=== PATIENT | male | born 1950 | race Caucasian/White ===

== ENCOUNTER 2020-12-18 16:29 | Emergency (ER) | payer MEDICARE, OTHER, SELFPAY ==
[2020-12-18] VITALS (52 sets, daily range): BP systolic 36–218; BP diastolic 18–120; PULSE 67–144; RESP 5–23; O2SAT 88–100
--- NOTE | 2020-12-18 16:30 | DI.RAD_ITS ---
Exam(s) XR PORTABLE CHEST AP EXAM: XR PORTABLE CHEST AP CLINICAL HISTORY: post intubation TECHNIQUE: 2D digital imaging was performed. COMPARISON: No exams were available for comparison FINDINGS: LUNGS: Expiratory but clear. No pleural abnormality seen. Leads overlie the chest. HEART: Normal. MEDIASTINUM: No mediastinal widening. Endotracheal tube positioned at the level of the aortic arch, above the ronda. BONES: Unremarkable. IMPRESSION: Satisfactory placement of endotracheal tube. DATA REPOSITORY: RADIATION DOSE DELIVERED:
[2020-12-18] MEDS: EPINEPHrine 1 MG/10 ML SYR IVP ×2 (16:35→17:21)
[2020-12-18] MEDS: Sodium Bicarbonate 50 MEQ/50 ML SYR IVP (16:36)
[2020-12-18] MEDS: Etomidate 20 MG/10 ML VIAL IVP (16:37)
[2020-12-18] MEDS: Succinylcholine 100 MG/5 ML SYR IVP (16:37)
[2020-12-18] MEDS: PROPOFOL 500 MG/50 ML BTL IVPB (16:45)
--- NOTE | 2020-12-18 16:45 | RT.EKG_ITS ---
APPROVED REPORT Exam: Resting ECG Reason for Exam: cardiac arrest Patient Location: E HR:124 bpm ECG Measurements Heart Rate 124 AXIS HI 155 P 89 QRSd 130 QRS -103 QT 328 T 12 QTc 471 Conclusion Sinus tachycardia...rate> 99 Right bundle branch block...QRSd>120, terminal axis(90,270) Inferior infarct, old...Q >35mS, II III aVF. Sinus tach. RBBB. I have reviewed and interpreted ECG and agree with software generated interpretation. No STEMI.
[2020-12-18] MEDS: Normal Saline 1,000 ML 1000 ML IV ×2 (17:00→19:07)
--- NOTE | 2020-12-18 17:00 | DI.RAD_ITS ---
Exam(s) XR PORTABLE CHEST AP POST LINE EXAM: XR PORTABLE CHEST AP POST LINE CLINICAL HISTORY: s/p OG placement TECHNIQUE: 2D digital imaging was performed. COMPARISON: CR,XR XR PORTABLE CHEST AP from 12/18/2020 FINDINGS: Endotracheal tube in good position above the level of the ronda. nasogastric tube in position, proj ecting in the stomach. Lungs suboptimally inflated. Question chronic fibrotic changes. No focal c onsolidation, effusion or pneumothorax. IMPRESSION: Satisfactory placement of nasogastric tube. DATA REPOSITORY: RADIATION DOSE DELIVERED:
--- NOTE | 2020-12-18 17:04 | ED.GENADUL_ITS ---
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 Given 1 IM dose of epi at front door by ED staff. Pt pale and unresponsive. Pt placed on monitor and noted to be tachycardic and sinus. Shortly after arrival, pt became pulseless and CPR initiated. Pt given another dose of IM epi and then a dose of IV epi. ROSC obtained and pt intubated. Propofol gtt started. Staff noted pt to be grimacing and a dose of fentanyl IV push ordered by JUANY. 1720 -- pt became hypotensive and pulseless a few minutes after fentanyl bolus. CPR initiated and continued for 2 minutes. Given 1 dose of epi IV and epi gtt started. ROSC obtained. HR 120s and appears sinus on monitor. D/w hospitalist who declines admission here. Will call [facility] for transfer. Pt remained hypotensive w/ SBP in the ~ 30s with weak pulse and given 1 dose of IV epi and epi gtt increased incrementally. Bounding pulse noted but no improvement in BP and propofol decreased and versed gtt added. No beds available at [facility]. JUANY Nettles d/w [facility] critical care - recommended levophed gtt and continual fluid boluses. Agrees with plan for continuing epi gtt. BP improved after decreasing propofol gtt before versed gtt started , now 126/42. 1810 -- pt accepted for transfer to [facility] once stable. BP hypotensive, 42/30. 1830 -- BP improved and stabilized, now 126/59. Pt is on propofol, versed, epi and norepi gtts. D/w [facility] who accepts pt for transfer - accepting physician Dr. Aldrich. Will contact [facility]. 190 -- Pt remains hemodynamically stable. Nursing continuing to manage gtts at bedside. Concurrently managing another critical pt in the ED at this time. 1950 -- Flight crew here to transport pt - BP 98/61. Medical Records Medical records reviewed: Yes I reviewed the patient's medical records. Imaging Data Radiologic Study: Radiologist's impression: XR Chest Exam date and time: 12/18/2020 5:14 PM Age: 70 years old Clinical indication: Device placement; Other: Og placement TECHNIQUE: Imaging protocol: XR of the chest. Views: 1 view. COMPARISON: CR XR PORTABLE CHEST AP 12/18/2020 4:54 PM FINDINGS: Tubes, catheters and devices: ET tube tip 3.4 cm above the ronda. NG tube tip at the proximal body of the stomach. Lungs: Unremarkable. No consolidation. Pleural spaces: Unremarkable. No pleural effusion. No pneumothorax. Heart/Mediastinum: Unremarkable. No cardiomegaly. Bones/joints: Unremarkable. IMPRESSION: 1. ET tube tip 3.4 cm above the ronda. 2. NG tube tip at the proximal body of the stomach. Lab Data Lab results reviewed: Yes I reviewed the patient's lab results. Labs: Laboratory Tests Range/Units 12/18/20 12/18/20 12/18/20 16:48 17:25 17:25 WBC (4.4-10.8) 10^3/uL 12.10 H RBC (4.36-5.78) 10^6/uL 5.18 Hgb (13.5-17.5) g/dL 15.7 Hct (40.0-50.0) % 48.5 MCV (80-95) fL 93.6 MCH (27.0-33.0) pg 30.3 MCHC (32.0-36.0) % 32.4 RDW (11.8-14.1) % 13.0 Plt Count (130-400) 10^3/uL 372 MPV (8.0-11.0) fL 9.7 Immature Gran % 3.8 Neutrophils % 44.1 Lymphocytes % 47.7 Monocytes % 3.9 Eosinophils % 0.3 Basophils % 0.2 Nucleated RBC % % 0 Absolute Neutrophils (1.2-6.7) 10^3/uL 5.34 Absolute Lymphocytes (1.2-3.4) 10^3/uL 5.77 H Absolute Monocytes (0.1-0.8) 10^3/uL 0.47 Absolute Eosinophils (0.0-0.7) 10^3/uL 0.04 Absolute Basophils (0.0-0.2) 10^3/uL 0.02 RBC Morphology Normal ABG Sample Site ABG pH (7.35-7.45) ABG pCO2 (35-45) mmHg ABG pO2 (80-105) mmHg ABG HCO3 (22-26) mmol/L ABG Total CO2 ABG O2 Saturation (95-98) % ABG Base Excess (-2-3) mmol/L Oxygen Liter Flow FiO2 Sodium Cancelled 141 Potassium Cancelled 3.1 L Chloride Cancelled 107 Carbon Dioxide Cancelled 18.3 L Anion Gap Cancelled 15.7 H BUN Cancelled 11 Creatinine Cancelled 1.7 H Estimated GFR/1.73 m2 Cancelled 40.04 Glucose Cancelled 140 H Calcium Cancelled 7.9 L Magnesium (1.8-2.4) mg/dL 2.1 Total Bilirubin Cancelled 0.3 AST Cancelled 73 H ALT Cancelled 71 H Alkaline Phosphatase Cancelled 49 Troponin I Cancelled 0.05 Total Protein Cancelled 5.6 L Albumin Cancelled 2.9 L TSH (0.36-3.74) uIU/mL 4.13 H Free T4 (0.76-1.46) ng/dL 0.87 Range/Units 12/18/20 12/18/20 12/18/20 17:28 19:57 21:17 WBC (4.4-10.8) 10^3/uL RBC (4.36-5.78) 10^6/uL Hgb (13.5-17.5) g/dL Hct (40.0-50.0) % MCV (80-95) fL MCH (27.0-33.0) pg MCHC (32.0-36.0) % RDW (11.8-14.1) % Plt Count (130-400) 10^3/uL MPV (8.0-11.0) fL Immature Gran % Neutrophils % Lymphocytes % Monocytes % Eosinophils % Basophils % Nucleated RBC % % Absolute Neutrophils (1.2-6.7) 10^3/uL Absolute Lymphocytes (1.2-3.4) 10^3/uL Absolute Monocytes (0.1-0.8) 10^3/uL Absolute Eosinophils (0.0-0.7) 10^3/uL Absolute Basophils (0.0-0.2) 10^3/uL RBC Morphology ABG Sample Site Cancelled ABG pH (7.35-7.45) 7.18 L* Cancelled ABG pCO2 (35-45) mmHg 46 H Cancelled ABG pO2 (80-105) mmHg 458 H Cancelled ABG HCO3 (22-26) mmol/L 17 L Cancelled ABG Total CO2 Cancelled ABG O2 Saturation (95-98) % > 99 H Cancelled ABG Base Excess (-2-3) mmol/L -11 L Cancelled Oxygen Liter Flow Cancelled FiO2 Cancelled Sodium Potassium Chloride Carbon Dioxide Anion Gap BUN Creatinine Estimated GFR/1.73 m2 Glucose Calcium Magnesium (1.8-2.4) mg/dL Total Bilirubin AST ALT Alkaline Phosphatase Troponin I 0.84 H* Total Protein Albumin TSH (0.36-3.74) uIU/mL Free T4 (0.76-1.46) ng/dL ECG Data Attestation: I personally reviewed and interpreted this ECG (s) as follows: Interpretation: Rate of 124, sinus, right bundle branch block. No STEMI. HPI General Mode of arrival: ambulatory . Date/Time Provider Initiated Documentation: 12/18/20 16:41 . Limitations to Documentation: altered mental status . Information obtained by: family . 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 She states that once they pulled right up to the ED front door, he started foaming at the mouth and slumped over in the seat. ED staff immediately ran out to the ED front doors where he was given Related Data Home Medications Medication Instructions Recorded Confirmed lisinopril 12/18/20 Allergies Allergy/AdvReac Type Severity Reaction Status Date / Time bee venom protein (honey bee) Allergy Anaphylaxis Unverified 12/18/20 17:41 Review of Systems Unobtainable due to mental status [facility] Medical History (Updated 12/18/20 @ 18:03 by Adamaris Ramsay DO) Anaphylaxis Bees HTN (hypertension) Surgical History (Updated 12/18/20 @ 17:13 by YOKO Gibson History of knee surgery Social History Smoking/Tobacco Use Status: Former Tobacco Use Smoking risk assessment performed?: Yes Alcohol Intake: current Alcohol Intake frequency: 0-2 drinks per day Substance use type: does not use Additional Social history: unable to assess pt is unconcious Exam Const Nutritional Appearance: average body habitus Orientation: obtunded HENMT Head: normal to inspection Face and sinus: normal facial exam Eyes General: appearance normal, both eyes and all related structures Pupils: PERRL Neck Neck: normal visual inspection and No submandibular swelling Lymphatic: no lymphadenopathy noted Chest Chest: normal inspection of the chest Resp Auscultation: rhonchi upper bilaterally and lower bilaterally Cardio Rate: tachycardic Rhythm: regular rhythm GI Inspection: normal to inspection Palpation: soft, not firm, not rigid and nontender Male General Exam: Yes normal external exam Skin General skin exam: mottling and pallor Neuro General: patient obtunded Extrem General: normal to inspection and no edema Psych Appearance: grossly normal Course Lab/Test Results Lab/Test Results: Laboratory Tests Range/Units 12/18/20 16:48 Sodium Cancelled Potassium Cancelled Chloride Cancelled Carbon Dioxide Cancelled Anion Gap Cancelled BUN Cancelled Creatinine Cancelled Estimated GFR/1.73 m2 Cancelled Glucose Cancelled Calcium Cancelled Total Bilirubin Cancelled AST Cancelled ALT Cancelled Alkaline Phosphatase Cancelled Troponin I Cancelled Total Protein Cancelled Albumin Cancelled Procedures Intubation Time out performed: Yes sedative: Etomidate Mg Given: 20 paralytic: Succinylcholine Mg Given: 100 Laryngoscope: fiberoptic video scope ET Tube Size: 7.5 ET Tube Uncuffed: No Tube Secured Depth (cm): 25 Tube Placement Confirmation: visualized tube passing through cords and equal breath sounds bilaterally Patient Tolerated Procedure: well Intubation Complications: none
[2020-12-18] MEDS: fentaNYL 100 MCG/2 ML VIAL (17:17)
--- NOTE | 2020-12-18 17:30 | DI.VRAD_ITS ---
PROCEDURE INFORMATION: Exam: XR Chest Exam date and time: 12/18/2020 5:00 PM Age: 70 years old Clinical indication: Device placement; Ett placement (vent status) TECHNIQUE: Imaging protocol: XR of the chest. Views: 1 view. COMPARISON: No relevant prior studies available. FINDINGS: Tubes, catheters and devices: Single-view demonstrates endotracheal tube in good position approximately 3 cm above the ronda. Lungs: Unremarkable. No consolidation. Pleural spaces: No pneumothorax or significant effusion. Heart/Mediastinum: Unremarkable. No cardiomegaly. Bones/joints: Unremarkable. Other findings: Probable calcified nodule projecting over the left mid lung zone laterally appears benign. IMPRESSION: Dictated and Authenticated by: Antonio Cedillo MD. Ordering:TRI Ruvalcaba MD
[2020-12-18 17:31] LABS: BE -11 mmol/L (-2-3); HCO3 17 mmol/L (22-26); pCO2 46 mmHg (35-45); pO2 458 mmHg (80-105)
[2020-12-18 17:33] LABS: pH 7.18 (7.35-7.45); sO2 > 99 % (95-98)
[2020-12-18 17:35] LABS: Abs Immature Grans 0.46 10^3/uL (0.0-0.06); Absolute Eosinophil Count 0.04 10^3/uL (0.0-0.7); Absolute Lymphocyte Count 5.77 10^3/uL (1.2-3.4); Absolute Monocyte Count 0.47 10^3/uL (0.1-0.8); Basophils % 0.2; Eosinophils % 0.3; HCT 48.5 % (40.0-50.0); HGB 15.7 g/dL (13.5-17.5); Immature Grans % 3.8; Lymphocytes % 47.7; MCH 30.3 pg (27.0-33.0); MCHC 32.4 % (32.0-36.0); MCV 93.6 fL (80-95); MPV 9.7 fL (8.0-11.0); Monocytes % 3.9; Neutrophils % 44.1; Nucleated RBC 0 %; Platelet Count 372 10^3/uL (130-400); RBC 5.18 10^6/uL (4.36-5.78)
[2020-12-18 17:36] LABS: Absolute Basophil Count 0.02 10^3/uL (0.0-0.2); Absolute Neutrophil Count 5.34 10^3/uL (1.2-6.7)
[2020-12-18 17:55] LABS: ALT 71 U/L (16-63); AST 73 U/L (15-37); Albumin 2.9 g/dL (3.4-5.0); Alkaline Phosphatase 49 U/L (46-116); Anion Gap 15.7 mmol/L (3-11); BUN 11 mg/dL (7-18); Bilirubin, Total 0.3 mg/dL (0.2-1.0); CO2 18.3 mmol/L (21.0-32.0); CREATININE 1.7 mg/dL (0.70-1.30); Calcium 7.9 mg/dL (8.5-10.1); Chloride 107 mmol/L (98-107); Estimated GFR 40.04 (mL/min/1.73m2); Glucose 140 mg/dL (74-106); Magnesium 2.1 mg/dL (1.8-2.4); Potassium 3.1 mmol/L (3.5-5.1); Sodium 141 mmol/L (136-145); Total Protein 5.6 g/dL (6.4-8.2); Troponin I 0.05 ng/mL (<0.06)
[2020-12-18 17:56] LABS: Diff Comment Agrees w/ Instrument; RBC Morphology Normal
[2020-12-18] MEDS: MIDAZOLAM 50 MG in Normal Saline 90 ML 18 MG IV (18:10)
[2020-12-18 18:17] LABS: TSH (W/Ref FT4) 4.13 uIU/mL (0.36-3.74)
[2020-12-18 18:34] LABS: FREE T4 0.87 ng/dL (0.76-1.46)
--- NOTE | 2020-12-18 19:44 | NUR.NOTE ---
Nursing Note: MD at bedside, all drips titrated and reflected on MAR were per verbal order Dr. Ramsay.
--- NOTE | 2020-12-18 19:53 | DI.VRAD_ITS ---
PROCEDURE INFORMATION: Exam: XR Chest Exam date and time: 12/18/2020 5:14 PM Age: 70 years old Clinical indication: Device placement; Other: Og placement TECHNIQUE: Imaging protocol: XR of the chest. Views: 1 view. COMPARISON: CR XR PORTABLE CHEST AP 12/18/2020 4:54 PM FINDINGS: Tubes, catheters and devices: ET tube tip 3.4 cm above the ronda. NG tube tip at the proximal body of the stomach. Lungs: Unremarkable. No consolidation. Pleural spaces: Unremarkable. No pleural effusion. No pneumothorax. Heart/Mediastinum: Unremarkable. No cardiomegaly. Bones/joints: Unremarkable. IMPRESSION: 1. ET tube tip 3.4 cm above the ronda. 2. NG tube tip at the proximal body of the stomach. Dictated and Authenticated by: Kj Rodarte MD. Ordering:BIJU Chavarria MD
[2020-12-18 20:38] LABS: Troponin I 0.84 ng/mL (<0.06)
[2020-12-19 11:09] LABS: FIO2 100 %; Site Right Radial
== END 2020-12-18 20:43 | disposition short-term general hospital (02) ==
PROVIDERS: Student in an Organized Health Care Education/Training Program; Emergency Provider Physician Assistant; PCP Family Medicine Adult Medicine
DX: T78.2XXA Anaphylactic shock, unspecified, initial encounter (principal); T63.441A Toxic effect of venom of bees, accidental (unintentional), initial encounter; I46.8 Cardiac arrest due to other underlying condition; Z91.030 Bee allergy status
CPT/HCPCS: 31500; 51702; 71045; 80053; 82805; 92950; 93005; 96361; 96365; 96366; 96368; 96372; 96375; 96376; 99291; 99292; 36600; 83735; 84439; 84443; 84484; 85025; 93010; J0171; J3010; J3490

== ENCOUNTER 2021-07-11 03:12 | Outpatient (CLI) | payer MEDICARE, OTHER, SELFPAY ==
[2021-07-11 11:54] LABS: Source Nasal/Nares
[2021-07-11 16:13] LABS: COVID-19 PCR Negative (Negative)
== END 2021-07-11 03:13 | disposition home or self-care (01) ==
LOC: LBO 03:13
PROVIDERS: Visit Provider Podiatrist
DX: Z20.822 Contact with and (suspected) exposure to COVID-19 (principal)
CPT/HCPCS: 87635

== ENCOUNTER 2021-07-13 06:11 | Day surgery (SDC) | payer MEDICARE, OTHER, SELFPAY ==
--- NOTE | 2021-07-12 20:35 | HPE_ITS ---
Date of service: 07/13/21 Time of Service: 06:35 History of Present Illness History of Present Illness Chief Complaint: painful right 2nd hammertoe Narrative: 71 YO male with a painful right 2nd hammertoe deformity that is intering with shoe gear and, ambulation and daily activity. PFSH All Active Problems Bee sting-induced anaphylaxis (Acute) Cardiopulmonary arrest (Acute) Medical History Anaphylaxis Bees HTN (hypertension) Surgical History History of knee surgery Social History Smoking/Tobacco Use Status: Former Tobacco Use Smoking risk assessment performed?: Yes Alcohol Intake: current Alcohol Intake frequency: 0-2 drinks per day Substance use type: does not use Additional Social history: unable to assess pt is unconcious Meds Allergies and Home Medications Allergies Allergy/AdvReac Type Severity Reaction Status Date / Time bee venom protein (honey bee) Allergy Anaphylaxis Unverified 12/18/20 17:41 Home Medications Medication Instructions Recorded Confirmed Type lisinopril 12/18/20 History Exam Narrative Exam Narrative: 71 YO male in NAD Heads normo-cephalic Eyes PERRLA Hearing is adequate Uvula is midline Heart had RRR, no murmur noted Lung hall were clear Stomach was soft, BS x 4 Peripheral pulses are palpable at the ankle, no edema. Feet are warm to the touch. Muscle groups are 5/5 bilaterally Right foot has a semi rigid 2nd hammertoe deformity with irritation over the P IPJ. Digiti quinti varus deformity is also noted. Neurologically: grossly in tact Impressions: Hammertoe deformities, 2 & 5 right foot Plan: Zachariah is being brought to the OR for surgical repair of symptomatic hammeertoe deformities. He understands risks and complications related to pain, scarring, edema, infection, over or under correction, recurrence of deformity. All questions have been answered in detail. Informed consent obtained.
[2021-07-13 06:15] VITALS: BP 140/84; PULSE 89; RESP 18; TEMP 35.8; O2SAT 98
[2021-07-13] MEDS: Lactated Ringers 1,000 ML 80 ML IV (06:57)
[2021-07-13] MEDS: ceFAZolin 2 GM/50 ML BAG IVPB (07:33)
[2021-07-13] MEDS: Bupivacaine 0.5% Pres-Free 30 ML VIAL (07:51)
[2021-07-13] MEDS: Povidone-Iodine Soln. 118 ML BTL TP (08:00)
[2021-07-13] MEDS: Dexamethasone 4 MG/ML VIAL (08:01)
--- NOTE | 2021-07-13 08:14 | W.PM.DSUDISC ---
Discharge Plan Disposition Patient Disposition: HOME Condition: Good Discharge Details Reason For Visit: Correction symptomatic right second hammertoe Attending Provider: Michael Hyman Primary Care Provider: [facility] Home Meds and New Rx's Prescriptions: New hydrocodone-acetaminophen 5-325 mg tablet 1 tab PO Q4H PRN (Reason: pain) Qty: 9 RF: 0 ibuprofen 600 mg tablet 600 mg PO Q6H PRN (Reason: pain and inflammation) Qty: 40 RF: 1 Continued hydrochlorothiazide 12.5 mg tablet 12.5 mg PO DAILY RF: 0 lisinopril 5 mg Tablet RF: 0 Discharge Instructions Activity:: Elevate Remove Dressings/Wound Care:: Do Not Remove Shower/Bathe:: Cover Diet:: Normal Diet Discharge Orders Discharge Orders: Discharge Order (Routine); Ordered 07/13/21 Ordered By: Michael Hyman DS: Diagnosis Discharge Diagnosis (1) Hammertoe of second toe of right foot: Status: Acute
--- NOTE | 2021-07-13 08:20 | W.PM.OP ---
Date of service: 07/13/21 Time of Service: 08:20 Operative Note Operative Note DATE OF PROCEDURE: 07/13/21 PRE-OP DIAGNOSIS: Right second hammertoe deformity POST-OP DIAGNOSIS: same PROCEDURE: Arthroplasty right second toe with 0.062 K wire fixation SURGEON: Michael Hyman ANESTHESIA TYPE: Local By Surgeon Refer to Anesthesia Record ESTIMATED BLOOD LOSS: 1 PATHOLOGY: none sent TOURNIQUET TIME: 0 COMPLICATIONS: None Patient was transported to: same day Patient's condition: stable Indications: 71-year-old white male with increasing pain associated with the right second hammertoe deformity. Pain is experienced in shoe gear and ambulatory activities now interfering with daily activities. He understands risk and complications of surgery to obtain the potential for pain, scarring, infection, recurrence of deformity with the potential need for revisional procedures. All questions have been answered in detail. Informed consents been obtained. No promises made to final outcome of surgery. Procedure Description: Zacharaih was brought to the operative suite placed in the supine position with the right foot prepped and draped in the usual sterile podiatric fashion. Timeout was performed for safe surgery in the standard fashion. Local anesthetic was utilized for anesthesia consisting of 5 cc of a 50: 50 mixture 1% lidocaine with epinephrine 0.5% Marcaine plain at the base of the right second toe. Foot was then prepped and draped in the usual sterile fashion. Attention was directed to the second toe where a midline longitudinal incision was placed starting at the mid shaft region of the proximal phalanx and extending to the head of the middle phalanx. The incision was deepened in controlled depth fashion. The extensor tendon was noted and a transverse tenotomy performed at the PIPJ level. The medial lateral collaterals were released and the head of the proximal phalanx delivered into the wound. Degenerative changes of the articular surface noted. With double-action bone cutting forceps the head of the proximal phalanx was removed. Relaxation of the toe occurred. There was still a little contracture at the MPJ level so a stab incision was placed just behind the metatarsal phalangeal joint and the extensor tendon release with a #15 scalpel. At this time the second toe was in a relaxed position. The digit was then stabilized in retrograde fashion with a 0.062 K wire. The wound was copiously irrigated with normal saline. A tendinopathy was performed and the tendon repaired end-to-end at the PIPJ level with simple interrupted suture 3-0 Vicryl. The skin was then coapted with a combination of simple interrupted and horizontal mattress suture of 4-0 nylon. Stab incision was closed with a simple stitch of 4-0 nylon. 4 mg of dexamethasone phosphate was infused deeply into the wound. Xeroform Betadine ointment applied gauze fluff compression dressing was applied Zachariah left the OR vital signs stable vascular status intact will be followed by myself next week in the office. Sharp and sponge counts were correct. 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
== END 2021-07-13 08:45 | disposition home or self-care (01) ==
PROVIDERS: Visit Provider Podiatrist
PROC: (CPT 28285; principal; 2021-07-13 07:30)
DX: M20.41 Other hammer toe(s) (acquired), right foot (principal); I10 Essential (primary) hypertension
CPT/HCPCS: 28285; J0690; J1100

== ENCOUNTER → 2021-08-27 08:26 | Outpatient (BNVA) | payer MEDICARE, OTHER, SELFPAY | PROVIDERS: Visit Provider Student in an Organized Health Care Education/Training Program | DX: M17.11 Unilateral primary osteoarthritis, right knee (principal) | CPT/HCPCS: 99214 ==

== ENCOUNTER 2021-11-20 08:17 | Outpatient (CLI) | payer MEDICARE, OTHER, SELFPAY ==
--- NOTE | 2021-11-20 08:00 | DI.RAD_ITS ---
Exam(s) XR KNEE LT 3V AP,LAT,KIERRA EXAM: XR KNEE LT 3V AP,LAT,KIERRA CLINICAL HISTORY: left knee pain. TECHNIQUE: 2D digital imaging was performed. COMPARISON: CR KNEE 2 VIEWS (ROUTINE) from 08/02/2020 FINDINGS: Four views No evidence of fracture. There appears to be a small joint effusion. Some calcification is noted in the distal anterior aspect of the quadriceps tendon just above the patella. There is narrowing of t he medial compartment of the knee-moderate. No large osteophytes. Lateral compartment unremarkable. Patellofemoral compartment exhibits mild degenerative change. Some vascular calcification is noted in the popliteal artery and runoff vessels of the calf. IMPRESSION: Degenerative changes as described above. Small joint effusion. No osseous lesions. No osteochondra l defects evident. DATA REPOSITORY: RADIATION DOSE DELIVERED:
== END 2021-11-20 08:18 | disposition home or self-care (01) ==
LOC: DIORS 08:17
PROVIDERS: Visit Provider Physician Assistant Surgical
DX: M17.12 Unilateral primary osteoarthritis, left knee
CPT/HCPCS: 20610; 73562; J1040

== ENCOUNTER 2022-02-01 08:17 | Outpatient (CLI) | payer MEDICARE, OTHER, SELFPAY ==
--- NOTE | 2022-02-01 08:00 | DI.RAD_ITS ---
Exam(s) XR KNEE RT 1V EXAM: XR KNEE RT 1V CLINICAL HISTORY: right knee DJD. TECHNIQUE: 2D digital imaging was performed. COMPARISON: CR XR KNEE LT 3V AP,LAT,KIERRA from 11/20/2021 CR XR STANDING ALIGNMENT from 02/01/2022 FINDINGS: Single lateral view No fracture evident. Small joint effusion. Also prominent calcification at the quadriceps insertion on the anterosuperior aspect of the patella. Moderate degenerative changes in patellofemoral compar tment. No obvious osteochondral defects in the femoral condyles. Vascular calcification noted in th e popliteal artery. IMPRESSION: DATA REPOSITORY: RADIATION DOSE DELIVERED:
--- NOTE | 2022-02-01 08:00 | DI.RAD_ITS ---
Exam(s) XR STANDING ALIGNMENT EXAM: XR STANDING ALIGNMENT CLINICAL HISTORY: right knee DJD. TECHNIQUE: 2D digital imaging was performed. COMPARISON: CR XR KNEE LT 3V AP,LAT,KIERRA from 11/20/2021 FINDINGS: Standing leg length study images reveal unremarkable appearing hips. At the level the knees there is narrowing of the medial compartments, more so on the right than left side where there is moderate-ad vanced narrowing of the medial compartment on the right side. Lateral compartments bilaterally exhib it normal height. No marginal osteophytes but there is slight medial subluxation of the femoral cond yles relative to the tibial plateaus bilaterally. Degenerative subarticular cysts are noted at the l eft ankle talar dome level. Right ankle unremarkable. IMPRESSION: Medial compartment narrowing as described above. DATA REPOSITORY: RADIATION DOSE DELIVERED:
== END 2022-02-01 08:18 | disposition home or self-care (01) ==
LOC: DIORS 08:32
PROVIDERS: Visit Provider Physician Assistant
DX: M17.11 Unilateral primary osteoarthritis, right knee (principal)
CPT/HCPCS: 73560; 77073

== ENCOUNTER 2022-02-08 01:48 | Outpatient (CLI) | payer MEDICARE, OTHER, SELFPAY ==
[2022-02-08 09:06] LABS: HCT 46.1 % (40.0-50.0); HGB 15.6 g/dL (13.5-17.5); MCH 31.3 pg (27.0-33.0); MCHC 33.8 % (32.0-36.0); MCV 93 fL (80-95); MPV 9.2 fL (8.0-11.0); Platelet Count 384 10^3/uL (130-400); RBC 4.98 10^6/uL (4.36-5.78); RDW 13.4 % (11.8-14.1); RDW-SD 45.1 fL; WBC 9.18 10^3/uL (4.4-10.8)
[2022-02-08 09:40] LABS: Anion Gap 7.6 mmol/L (3-11); BUN 12 mg/dL (7-18); CO2 31.4 mmol/L (21.0-32.0); Calcium 9.4 mg/dL (8.5-10.1); Chloride 99 mmol/L (98-107); Estimated GFR 80.47 (mL/min/1.73m2); Glucose 115 mg/dL (74-106); Potassium 3.2 mmol/L (3.5-5.1); Sodium 138 mmol/L (136-145)
[2022-02-08 12:03] LABS: Source Nasal/Nares
[2022-02-08 16:54] LABS: COVID-19 PCR Negative (Negative)
== END 2022-02-08 01:49 | disposition home or self-care (01) ==
LOC: LBO 01:48
PROVIDERS: Visit Provider Student in an Organized Health Care Education/Training Program
DX: M17.11 Unilateral primary osteoarthritis, right knee (principal); Z01.818 Encounter for other preprocedural examination; Z20.822 Contact with and (suspected) exposure to COVID-19
CPT/HCPCS: 36415; 80048; 85027; 87635

== ENCOUNTER 2022-02-12 09:22 | Day surgery (SDC) | payer MEDICARE, OTHER, SELFPAY ==
[2022-02-12] VITALS (12 sets, daily range): BP systolic 105–152; BP diastolic 59–83; PULSE 64–78; RESP 14–20; TEMP 36.1–36.5; O2SAT 95–99; BMI 25.4
--- NOTE | 2022-02-12 09:35 | DSE_ITS ---
DS: Diagnosis Discharge Diagnosis (1) Primary osteoarthritis of right knee: Status: Acute Discharge Plan Disposition Patient Disposition: HOME Condition: Good Discharge Details Reason For Visit: Right knee DJD Attending Provider: Rajendra Swain Primary Care Provider: [facility],[place] Home Meds and New Rx's Prescriptions: New celecoxib [Celebrex] 200 mg capsule 200 mg PO BID Qty: 30 0RF aspirin 81 mg tablet,delayed release (DR/EC) 81 mg PO BID 30 Days Qty: 60 0RF acetaminophen 500 mg tablet 1,000 mg PO Q8H PRN Qty: 90 0RF Rx Instructions: Take two tablets up to every 8 hours as needed for pain docusate sodium [Colace] 100 mg capsule 100 mg PO BID Qty: 30 0RF gabapentin 300 mg capsule 300 mg PO QHS Qty: 14 0RF Rx Instructions: Take one tablet at bedtime oxycodone 5 mg tablet 5 mg PO Q4H PRN (Reason: severe post-operative pain) Qty: 18 0RF Rx Instructions: Take one tablet up to every 4 hours as needed for severe pain Continued simvastatin 20 mg tablet 20 mg PO DAILY omeprazole 20 mg capsule,delayed release(DR/EC) 20 mg PO DAILY trazodone 100 mg tablet 100 mg PO DAILY amlodipine 10 mg tablet 10 mg PO DAILY epinephrine [EpiPen] 0.3 mg/0.3 mL Auto-Injector 0.3 mg IM DIRECTED Discontinued ibuprofen 600 mg tablet 600 mg PO Q6H PRN (Reason: pain and inflammation) Qty: 40 1RF No Action chlorthalidone 25 mg Tablet 25 mg PO DAILY Discharge Instructions Additional Instructions: Total Knee Discharge Instructions Activity: The most important activity is to walk. You should try to take short walks a few times a day. It is important that when resting you work on keeping the knee straight. Avoid putting a pillow behind the knee as this will encourage flexion. Work on range of motion exercises as provided by Physical Therapy. - Start outpatient physical therapy within 2 weeks. - You should wear the TATYANA hose on both legs for 2 weeks. You may remove these at night. You may also use any compression sock in place of the TATYANA hose. - Utilize [employer] to review exercises, see videos on exercises and obtain basic information pertaining to your surgery and your recovery. Dressing: Remove the Tree wrap by 2 days after your surgery and put on the TATYANA stocking given to you from the hospital. Keep the surgical dressing (underneath the TREE wrap) in place for at least one week. After the first week it may be removed and replaced with light gauze and tape or nothing. The wound and dressing may get wet after 3 days but avoid soaking the dressing or otherwise it will need to be changed. Many people prefer covering the dressing with cling wrap (saran wrap) to minimize it from getting soaked. If it gets wet, just pat dry. If it starts to peel off then it will need to be changed. Medications: - You should take Tylenol and anti-inflammatory Celebrex as your primary pain control medications. If the Celebrex is too expensive or not covered, please call the office for another alternative (Advil/Ibuprofen or Naproxen/Aleve) - You have been prescribed a stronger pain medication Oxycodone for breakthrough pain, take as needed as prescribed. - You take a stomach acid reduction agent Omeprazole at baseline - will continue with this medication to help reduce stomach acid and reflux. - You have been prescribed Gabapentin to take at night for restlessness and nerve pain. - You will be taking Aspirin 81mg twice a day for DVT prevention unless instructed otherwise. - If you have constipation you should take Colace (which has been prescribed) or Miralax (which is available [id number]). It takes most people 3-4 days to have a bowel movement. Follow-up: 2 weeks If you have any acute concerns or questions, please do not hesitate to contact the office at [phone]. You may contact Dr. Swain with any questions after hours through the hospital at [phone] or on his cell phone at [phone]. Referrals: Rajendra Swain MD [ [facility] STAFF PHYSICIAN] - Equipment/Supplies: Walker Activity:: Elevate Remove Dressings/Wound Care:: Do Not Remove Shower/Bathe:: Cover Diet:: As Tolerated DS: Summary Time Spent with Patient providing and/or coordinating discharge services: Less than 30 minutes Status at Discharge Functional status at discharge: uses cane/walker Overall status at discharge: patient is progressing back to baseline Mental Status: mental status grossly normal Speech and Movement: speech and movement normal Mood: congruent mood Affect: normal affect Exam Psych Mental Status: mental status grossly normal Speech and Movement: speech and movement normal Mood: congruent mood Affect: normal affect PFSH All Active Problems Bee sting-induced anaphylaxis (Acute) Cardiopulmonary arrest (Acute) Hammertoe of second toe of right foot (Acute) Primary osteoarthritis of right knee (Acute) Osteoarthritis of left knee (Acute) Medical History Anaphylaxis Bees Cardiac arrest x2 anaphylaxis 12/18/20 HTN (hypertension) Surgical History H/O retained foreign body fully removed Right palm History of carpal tunnel surgery of left wrist History of carpal tunnel surgery of right wrist History of hemorrhoidectomy History of knee surgery arthroscopy - right Status post hammertoe correction Social History (Updated 02/01/22 @ 08:17 by Miranda Nava) Smoking/Tobacco Use Status: Former Tobacco Use Quit Date: 06/09/01 Smoking risk assessment performed?: Yes Alcohol Intake: current Alcohol Intake frequency: 0-2 drinks per day Alcohol type: beer Substance use type: does not use Details: alcohol: t-1, 1800 one beer Current gender identity: male Do you feel safe at home: Yes Do you feel safe in your relationship?: Yes Additional Social history: unable to assess privately
[2022-02-12] MEDS: Gabapentin 300 MG CAP PO (10:00)
[2022-02-12] MEDS: Acetaminophen 500 MG TAB 1000 MG PO (10:00)
[2022-02-12] MEDS: Celecoxib 200 MG CAP 400 MG PO (10:00)
--- NOTE | 2022-02-12 10:18 | W.ANESPRE ---
General Info Date of Service Date Performed: 02/12/22 Height: 5 ft 9 in Weight: 78.3 kg Body Mass Index (BMI): 25.4 Surgical Procedure: Operation Date: 02/12/22 13:10 Proposed Procedure Side Surgeon p Knee Total Arthroplasty Cementless CR Right Rajendra Swain MD Meds Allergies and Home Medications Allergies Allergy/AdvReac Type Severity Reaction Status Date / Time bee venom protein (honey bee) Allergy Severe Anaphylaxis Unverified 02/12/22 09:51 Home Medication Medication Instructions Recorded omeprazole 20 mg capsule,delayed 20 mg PO DAILY 08/27/21 release trazodone 100 mg tablet 100 mg PO DAILY 08/27/21 simvastatin 20 mg tablet 20 mg PO DAILY 11/20/21 amlodipine 10 mg tablet 10 mg PO DAILY 02/01/22 epinephrine 0.3 mg/0.3 mL 0.3 mg IM DIRECTED 02/08/22 injection, auto-injector (EpiPen) acetaminophen 500 mg tablet 1,000 mg PO Q8H PRN pain #90 tabs 02/12/22 aspirin 81 mg tablet,delayed 81 mg PO BID 30 days #60 tabs 02/12/22 release celecoxib 200 mg capsule (Celebrex) 200 mg PO BID #30 caps 02/12/22 chlorthalidone 25 mg tablet 25 mg PO DAILY 02/12/22 docusate sodium 100 mg capsule 100 mg PO BID #30 caps 02/12/22 (Colace) gabapentin 300 mg capsule 300 mg PO QHS #14 caps 02/12/22 oxycodone 5 mg tablet 5 mg PO Q4H PRN severe 02/12/22 post-operative pain #18 tabs Current Visit Medications: Current Medications Generic Name Dose Route Start Last Admin Trade Name Freq PRN Reason Stop Dose Admin Acetaminophen 1,000 mg 02/12/22 06:00 02/12/22 10:00 Acetaminophen 500 Mg Tab PO 02/12/22 16:00 1,000 mg PREOP MARY Administration Acetaminophen 1,000 mg 02/12/22 14:00 Acetaminophen 500 Mg Tab PO TID MARY Aspirin 81 mg 02/12/22 20:00 Aspirin E.C. 81 Mg Tabec PO BID MARY Celecoxib 400 mg 02/12/22 06:00 02/12/22 10:00 Celecoxib 200 Mg Cap PO 02/12/22 16:00 400 mg PREOP MARY Administration Celecoxib 200 mg 02/12/22 20:00 Celecoxib 200 Mg Cap PO BID MARY Docusate Sodium 100 mg 02/12/22 09:33 Docusate Sodium 100 Mg Cap PO BID PRN PRN Constipation Gabapentin 300 mg 02/12/22 06:00 02/12/22 10:00 Gabapentin 300 Mg Cap PO 02/12/22 16:00 300 mg PREOP MARY Administration Gabapentin 300 mg 02/12/22 22:00 Gabapentin 300 Mg Cap PO HS MARY Hydromorphone HCl 0.5 mg 02/12/22 09:33 Hydromorphone 2 Mg/Ml Syr IVP Q2H PRN PRN Tranexamic Acid 1,000 mg/ 60 mls @ 360 mls/hr 02/12/22 06:00 Sodium Chloride IVPB 02/12/22 16:00 PREOP MARY Ringer's Solution 1,000 mls @ 80 mls/hr 02/12/22 06:00 IV 03/10/22 23:59 INFUSION MARY Cefazolin Sodium/Dextrose 2 gm in 50 mls @ 100 mls/hr 02/12/22 06:00 Ancef Duplex IVPB 03/10/22 23:59 PREOP MARY Cefazolin Sodium/Dextrose 1 gm in 50 mls @ 100 mls/hr 02/12/22 10:00 Ancef Duplex IVPB 02/13/22 02:29 Q8H MARY IV Miscellaneous Supplies 1 each 02/12/22 06:00 Iv Access IV 03/10/22 23:59 DIRECTED MARY Ondansetron HCl 4 mg 02/12/22 09:33 Ondansetron 4 Mg/2 Ml Vial IVP Q6H PRN PRN Nausea Oxycodone HCl 0 mg 02/12/22 09:33 Oxycodone 5 Mg Tab PO Q3H PRN PRN Pain Pantoprazole Sodium 40 mg 02/13/22 07:30 Pantoprazole 40 Mg Tabcr PO DAILY@0730 MARY Polyethylene Glycol 17 gm 02/12/22 09:33 Polyethylene Glycol 3350 17 Gm Packet PO BID PRN PRN Constipation Sodium Chloride 0 ml 02/12/22 06:00 Normal Saline Flush 10 Ml Syr IV 03/10/22 23:59 PRN PRN Sodium Chloride 0 ml 02/12/22 06:00 Normal Saline 10 Ml Vial IJ 03/10/22 23:59 DIRECTED PRN Sterile Water 0 ml 02/12/22 06:00 Water,Injection,Sterile 10 Ml Vial IJ 03/10/22 23:59 DIRECTED PRN [facility] Active Problems Active Problems: Problem Status Onset Code Bee sting-induced anaphylaxis T63.441A Cardiopulmonary arrest I46.9 Hammertoe of second toe of right foot M20.41 Primary osteoarthritis of right knee M17.11 Osteoarthritis of left knee M17.12 Medical History Medical History Anaphylaxis Bees Cardiac arrest x2 anaphylaxis 12/18/20 HTN (hypertension) Medical History Comments:: pt. reports for hand surgery he had ether and was really sick, pt. reports he was 14 Surgical History Surgical History H/O retained foreign body fully removed Right palm History of carpal tunnel surgery of left wrist History of carpal tunnel surgery of right wrist History of hemorrhoidectomy History of knee surgery arthroscopy - right Status post hammertoe correction Tobacco Smoking/Tobacco Use Status: Former Tobacco Use Alcohol Alcohol Intake: current Alcohol intake frequency: 0-2 drinks per day Alcohol type: beer Substance Use Substance use type: does not use Details: alcohol: t-1, 1800 one beer Vital Signs and Lab Results Vital Signs Most Recent Vital Signs in EMR: Most Recent Vital Signs Temp Pulse Resp BP Pulse Ox 36.3 C L 67 18 152/83 H 98 02/12/22 10:09 02/12/22 10:09 02/12/22 10:09 02/12/22 10:09 02/12/22 10:09 Lab Results Blood Type / Crossmatch: No Data to Display Complete Blood Count: White Blood Count 9.18 10^3/uL (4.4-10.8) 02/08/22 08:59 Red Blood Count 4.98 10^6/uL (4.36-5.78) 02/08/22 08:59 Hemoglobin 15.6 g/dL (13.5-17.5) 02/08/22 08:59 Hematocrit 46.1 % (40.0-50.0) 02/08/22 08:59 Platelet Count 384 10^3/uL (130-400) 02/08/22 08:59 Complete Metabolic Panel: Sodium Level 138 mmol/L (136-145) 02/08/22 08:59 Potassium Level 3.2 mmol/L (3.5-5.1) L 02/08/22 08:59 Chloride Level 99 mmol/L (98-107) 02/08/22 08:59 Carbon Dioxide Level 31.4 mmol/L (21.0-32.0) 02/08/22 08:59 Blood Urea Nitrogen 12 mg/dL (7-18) 02/08/22 08:59 Creatinine 1.0 mg/dL (0.70-1.30) 02/08/22 08:59 Calcium Level 9.4 mg/dL (8.5-10.1) 02/08/22 08:59 Glucose Level 115 mg/dL (74-106) H 02/08/22 08:59 Liver Function Panel: No Data to Display Coagulation Panel: No Data to Display Cardiac Panel: No Data to Display Arterial Blood Gas: No Data to Display Venous Blood Gas: No Data to Display Pancreas Panel: No Data to Display Thyroid Panel: No Data to Display Infectious Disease: Coronavirus (COVID-19)(PCR) Negative (Negative) 02/08/22 09:13 Coronavirus 2019 Source Nasal/Nares 02/08/22 09:13 Blood Cultures: No Data to Display Toxicology Panel: No Data to Display Imaging and Studies Imaging and Studies Study information below may be from another EMR and interpreted by another provider. Please see original notes in EMR for more complete details. EKG Summary: 12/18/20: Conclusion Sinus tachycardia...rate> 99 Right bundle branch block...QRSd>120, terminal axis(90,270) Inferior infarct, old...Q >35mS, II III aVF. Stress Test Summary: 03/26/2021: Outpatient, [place], [facility] records EF 31%, diffuse hypokinesis No perfusion defects noted. Anesthesia Assessment and Plan Anesthesia History Personal History: No History of Anesthesia Complications Family History: No Family History of Anesthesia Complications Exercise Tolerance Exercise Tolerance: Metabolic Equivalents>4 Pertinent Negatives Pertinent Negatives: No Symptoms of GERD, No Major Cardiovascular Symptoms or Complaints and No Major Pulmonary Symptoms or Complaints Cardiac & Pulmonary Exam Cardiac Exam: Normal S1/S2 Heart Sounds Pulmonary Exam: Clear Bilateral Breath Sounds Implantable Cardiac Device Does patient have a Pacemaker or an ICD?: No Airway Exam Known Difficult Airway: No Mallampati Class: 2 Mouth Opening: Normal (> 3cm) Thyromental Distance: Greater than 3 cm Facial Hair: Full Crenshaw (Partial) Neck Range of Motion: Full ROM Neck Circumference: Normal Teeth Condition: Normal Dentition Airway Comments: Reports no history of KIM, significant snoring/nightly per spouse ASA Classification ASA Score: ASA 2 Emergency Case?: No NPO Status NPO Status: NPO Clears >2 hours, Solids >8 hours Anesthesia Plan Resuscitation Status: Full Code Anesthesia Technique: Spinal Anesthesia Airway Planned: Natural Airway Pain Management: Surgeon and patient request nerve block Monitors Used: Standard Monitors
[2022-02-12] MEDS: Lactated Ringers 1,000 ML 80 ML IV (10:55)
[2022-02-12] MEDS: ceFAZolin 2 GM/50 ML BAG IVPB (12:00)
--- NOTE | 2022-02-12 12:43 | W.ANESNERVE ---
Nerve Block Single Injection Procedure Date and Time Date Performed: 02/12/22 Procedure Start: 11:15 Location Where Procedure Performed Procedure Location: Day Surgery Unit Reason Performed: Postoperative Analgesia Requesting Provider: Brynn Timeout Performed Timeout Performed: Yes Monitoring Used ECG, Blood Pressure, SpO2 and See EMR for corresponding vital signs Sterility Sterility: Hand Hygiene, Surgical Cap, Surgical Mask, Sterile Gloves and Chlorhexidine Sedation Given During Procedure Sedation Given (Indicate Dose Given): Versed IV Dose:: 2mg Patient Mental Status Patient Mental Status: Awake Nerve Block 1st Nerve Block: Laterality: Right Block Type: Adductor Canal Needle / Catheter Used: 100mm SonoPlex II Local Anesthetic Bolus (Indicate Dose Given): Lidocaine used for local infiltration of skin, Injected in 3-5ml increments after negative blood aspiration and Bupivacaine 0.25% Dose:: 10mL Additives (Indicate Dose Given): None Ultrasound: Sterile probe cover and gel used Ultrasound Image Saved?: Yes Nerve Stimulator: Not Used Paresthesia: None Procedure Tolerated: No Complications Procedure Outcome: Successful Performed By: Afsaneh Benoit
[2022-02-12] MEDS: oxyCODONE 5 MG TAB PO (15:11)
--- NOTE | 2022-02-12 15:45 | PT.INIE ---
Date of service: 02/12/22 Time of Service: 15:45 PT Notes Visit Reasons: Right knee DJD Physical Therapy Day Surgery Initial Evaluation Date: 02/12/2022 Referring Doctor: JUANY Bailey PT Orders: PT CONSULT: S/P Ortho surgery Precautions: WBAT on right LE with AD. Patient Profile/Admitting Diagnosis: Zachariah is a 71-year-old male with degenerative joint disease of the right knee and is status post right total knee arthroplasty on postoperative day 0. PMHX: Medical History?(Updated 02/01/22 @ 08:16 by Miranda Nava) Anaphylaxis BeesHTN (hypertension) Surgical History?(Updated 02/01/22 @ 08:16 by Miranda Nava) H/O retained foreign body fully removed Right palmHistory of carpal tunnel surgery of left wrist History of carpal tunnel surgery of right wrist History of hemorrhoidectomy History of knee surgery arthroscopy - right Status post hammertoe correction Social History/Home Situation: Lives with in a private home with a ramp to enter. Independent with all aspects of ADLs prior to surgery. Equipment Owned/DME: [employer] Subjective: Reports -08/2021 pain in the right LE at rest. Denies headache, chest pain, and lightheadedness throughout session. Agreeable to trying out the front wheel walker and the bilateral axillary crutches today Objective: General Observation: Supine in bed. FILOMENA wraps to right LE. TEDS to left leg. Naa present throughout evaluation. Mental Status: Alert and oriented x4 Pain: -08/2009 pain in the right knee ROM: Right Lower Extremity: Hip flexion WFL. Hip abduction WFL. Knee flexion 10 degrees to 95 degrees. Knee extension -10 degrees. Ankle dorsiflexion WFL. Ankle plantarflexion WFL. Left Lower Extremity: Hip flexion WFL. Hip abduction WFL. Knee flexion WFL. Ankle dorsiflexion WFL. Ankle plantarflexion WFL. Strength: Right Lower Extremity: Hip flexors 5/5. Hip abductors 5/5. Knee flexors 3-/5. Knee extensors 3-/5. Ankle dorsiflexors 5/5. Ankle plantarflexors 5/5. Left Lower Extremity:Hip flexors 5/5. Hip abductors 5/5. Knee flexors 5/5. Knee extensors 5/5. Ankle dorsiflexors 5/5. Ankle plantarflexors 5/5. Sensation: And light pressure in bilateral lower extremities. Bed Mobility/Transfers: Supine to sit supervision Sit to stand standby assist Stand to sit standby assist Bed to chair standby assist THERA EX: SLR x 10 Seated hip flexion x 10 LAQs x 10 Ankle DF/PF x 10 Glutes sets x 10 Quads sets x 10 Gait: Tolerated level surface ambulation of 150 feet using front wheeled walker with standby assist with step through gait pattern. Also negotiated level surface ambulation of 50 feet using bilateral axillary crutches requiring standby assist. Verbalized wanting to use of bilateral axillary crutches more as she is he is able to move a lot quicker. Advised patient to take time living with crutches to reduce risk for falls at home. Balance: Static Sitting: Normal Dynamic Sitting: Normal Static Standing: Fair Dynamic Standing: Fair Special Tests: Mobility Limitations Standardized Measure [facility] AM-PAC 6 clicks Basic Mobility Inpatient Short Form: Raw Score: 24 CMS Score: 0% deficit Informed Consent/Education: Patient instructed in purpose of PT consult. Packet containing TKA exercise protocol has been given to patient. Education and training on initial set of exercises that can be done at home have been completed with patient with reference to the everbill breanna. Assessment: Patient presents with clinical signs and symptoms consistent with current/admitting diagnoses that have resulted to mobility limitations and gait instability as demonstrated by the following impairment level findings: 1. Decreased strength to R knee major muscle groups 2. Impaired standing balance 3. Limitation of joint range of motion in R knee Impairments are contributing to the following functional limitations: 1. Inability to safely ambulate without assistive device 2. Increase completion time for mobility ADL performance 3. Increased fall risk Patient is assessed as a 84328 moderate complexity based on the following: History: 71-year-old male with impairment level findings, functional limitations, and past medical history as indicated above Examination: Demonstrable impairment in strength, balance, and mobility level with underlying impairments and functional limitations as documented above Presentation: Evolving Decision Makin moderate complexity Goals: N/A. PT evaluation and 1-2 treatment sessions only for functional mobility training using recommended AD and for HEP instruction. Plan of Care/Treatment Plan: N/A. PT evaluation and 1-2 treatment session only for functional mobility training using recommended AD and for HEP instruction. DISCHARGE RECOMMENDATIONS: [] Home with no services [] [] Home with services [specify] [X] Home with outpatient PT. Home when medically cleared by orthopedic surgeon. Will benefit from outpatient PT services in order to facilitate return to independent community ambulation and maximize functional outcomes. [] SNF for continued rehabilitation [] [] [facility] Equipment Operator Care [] [] SNF versus LTC based on ability to participate and progress [] TREATMENT CODE/TIME: 44086 x 20 minutes, [id number] x 23 minutes beginning at 15:45 PM. Thank you for the opportunity to participate in the care of this patient. Ana Ravi PT, DPT, CLT [facility] [place], [place]
--- NOTE | 2022-02-12 15:46 | W.ANESPOSTOP ---
Postoperative Evaluation Date, Time and Location Date Performed: 02/12/22 Time Performed: 15:47 Patient Location: Day Surgery Unit Vital Signs Most Recent Imported Vital Signs: Most Recent Vital Signs Temp Pulse Resp BP Pulse Ox 36.5 C 71 18 132/80 95 02/12/22 15:43 02/12/22 15:43 02/12/22 15:43 02/12/22 15:43 02/12/22 15:43 Pain Score Most Recent Pain Score: Most Recent Pain Score Pain Level [Right Mid Anterior 9 02/12/22 15:13 Knee] Pain Level 3 02/12/22 15:25 Assessment Mental Status: Awake (Alert & Oriented to Patient Baseline) Airway and Respiratory Function: Patent airway with normal (patient baseline) respiratory exam Cardiovascular Function: Hemodynamically Stable Hydration Status: Adequately Hydrated Nausea & Vomiting: No Nausea or Vomiting Pain: Pain is Moderate or Severe Postoperative Pain Management: Pain being addressed with medication Peripheral Nerve Block: Regional nerve block not resolved at time of post operative discharge Teaching Patient Teaching: Advised to seek followup for the following concerns (See explanation) (Potential KIM) Concerns: Other (Potential KIM)
--- NOTE | 2022-02-13 14:26 | ROE_ITS ---
Date of service: 02/12/22 Time of Service: 12:30 Operative Note Operative Note DATE OF PROCEDURE: 02/12/22 PRE-OP DIAGNOSIS: Right Knee Arthritis POST-OP DIAGNOSIS: same PROCEDURE: Right Total Knee Replacement SURGEON: Rajendra Swain PROFESSOR OF SURGERY: Gagan Conley ANESTHESIA TYPE: Spinal Refer to Anesthesia Record ESTIMATED BLOOD LOSS: 100 PATHOLOGY: none sent TOURNIQUET TIME: 0 COMPLICATIONS: None Patient was transported to: PACU Patient's condition: stable Implants: 1. Depuy Attune Cementless Cruciate Retaining Femoral Component, Size 7 2. Depuy Attune Cementless Rotating Platform Tibial Component, Size 6 3. Depuy Attune 7x6mm CR/RP Poly 4. Depuy Attune Patellar Component, Size 38 Indications: I have seen Gagan in clinic for symptoms of knee arthritis, confirmed with radiographic findings. Gagan has exhausted nonoperative methods and was having significant limitations in daily function and desired better function and less pain. I discussed the technical details of a knee replacement. I explained the risks of the procedure to include, but not limited to, bleeding, infection, pain, stiffness, fracture, damage to nerves and vessels, damage to muscles and tendons, loosening, need for repeat procedure, blood clot and cardiopulmonary demise. Despite these risks, Gagan elected to proceed. Findings: There was significant signs of arthritis throughout the knee, most notably about the medial tibia and femur. Procedure Description: Gagan was greeted in the preoperative holding area where the correct side was identified and marked. The consent was reviewed with the patient and signed. The history and physical was updated. All questions were answered. Preoperative medications were administered: Acetaminophen 1000mg, Celebrex 400mg, and Gabapentin 300mg. An adductor canal block was then administered by the anesthesia team in the PACU. Gagan was taken back to the operating room. A spinal anesthestic was then administered. The patient was placed into the supine position on the operating room table. A nonsterile tourniquet was placed high onto the leg but only used for cementing. Posts were placed for positioning during the procedure. All bony prominences were well padded. Prophylactic antibiotics in the form of Cefazolin were administered. 1g of Tranxemic Acid was given intravenously within 30 minutes of incision. The right leg was then prepped with Chloraprep and draped in a standard fashion with impervious stockinette. A second prep with Chloraprep was performed prior to application of Iodine impregnated skin protection. A timeout to confirm correct identity, side and site, procedure, allergies, anesthesia, and medical concerns was performed. With the knee in some flexion, a midline incision was made overlying the knee. Full thickness skin flaps were raised once the extensor mechanism was encountered. These were raised medially and laterally. Any bleeding was controlled with electrocautery. Once the extensor mechanism was fully exposed, a medial parapatellar arthrotomy was performed in a flexed position. All bleeding from the arthrotomy and the geniculate arteries was coagulated. A medial subperiosteal peel was performed with electrocautery to the midcoronal plane. The fat pad was removed while keeping the patellar tendon protected. The anterior distal femur synovium was removed for later visualization. The ACL and PCL were resected and the anterior horn of the lateral meniscus was transected. The knee was then flexed with the patella everted. Large osteophytes from the tibia were removed. Large osteophytes from the femur were removed. Using a step drill, and based on preoperative templating, the femoral canal was entered. This was done with a step drill without any difficulty. The intramedullary distal femoral cut guide was inserted, set to a 6 degree valgus cut and 8mm cut thickness. The distal femoral cut guide was then held in position and pinned. With the soft tissues protected, the distal cut was performed. This was passed over a few times to ensure a planar cut. I then turned attention to the tibia. The extramedullary guide was placed onto the leg. The distal aspect was slid medial to adjust for position of center of ankle and stay in line with shaft of the tibia. Approximately 3-5 degrees of posterior slope was kept in the proximal cutting guide. The center of the guide was aligned with the PCL. The stylus was used to assess cut thickness. The medial side, most involved side, was set for a 6mm cut. This was then held in position and pinned into place with 2 additional pins and a cross pin for stability. The medial and lateral collateral ligaments were protected and the cut was performed. With this completed, it was assessed and noted to be of appropriate dimensions. The guide was removed. A spacer block was inserted and the knee was brought into extension. The 6mm spacer block provided full extension, without hyperextension and with stability of both the medial and lateral collateral ligaments was assessed. The pins from the femur and the tibia were then removed. The distal femur was then sized. The anterior stylus was placed onto the lateral ridge of the anterior femur. This indicated a size 7 femur. The external rotation of the guide was adjusted to 3 degrees to match the epicondylar axis, perpendicular to [place]?s line. The 4-in-1 cutting guide was the placed. The posterior medial femur cut was evaluated and appeared of good thickness. The spacer block was inserted underneath the cutting guide and stability was confirmed in 90 degrees of flexion. An radha wing was used to confirm appropriate position of the anterior cut to avoid notching. This cutting guide was ensured to be flush on the cut surface and then pinned into place with headed pins. While protecting the soft tissues, quad tendon, and collateral ligaments, the anterior and posterior cuts were performed with a saw. The central two pins were removed and the posterior and anterior chamfers were cut next. The notch-cutting guide was placed. This was pinned to lateralize the femoral component as much as possible while keeping it flush on the cut surface. This was then pinned into position. A reciprocating saw was used to make the notch cut. A rasp smoothed the cut surfaces. The medial and lateral menisci were removed. A trial femoral component was then inserted, impacted down to the cut surfaces, and the lug holes were drilled. A provisional trial tibial component was placed and the knee was brought through range of motion. There was noted to be excellent extension and flexion. There was no significant instability. The patella was tracking without thumbs. A size 6mm polyethylene component provided the best range of motion and stability with less than 2mm gapping with medial and lateral stress and full extension without significant hyperextension. The tibial cut surface was fully exposed. The tibia was then sized as a 6. The tibia had been previously marked during trialing to correspond to the center of the tibial component to help with rotation. The trial was aligned to this gagan, approximately rotated to the medial 1/3rd of the tibial tubercle. The trial was pinned into place. The tibia was prepared with a reamer and a keel punch and lug holes. The knee was then brought into extension and the patella was measured as 26mm. Using the patellar clamp and cut guide, this was resected to a flat surface with at least 13mm of thickness remaining. The size 38 patella fit the best. This was oriented and then clamped into position. The lugs were drilled. The trial components were removed. The final components were opened on the back table. The periosteal and capsular tissues, especially posteriorly, around the knee were then systematically injected with a periarticular cocktail consisting of 246mg of Ropivacaine, 0.5mg of Epinephrine, 0.08mg of Clonidine, and 30mg of Ketorolac, diluted to 100cc. On the back table, with the implants opened, the cement was mixed. One batch of high viscosity cement was prepared with vacuum assistance. After the cement was ready a small amount was placed on the cut surface of the patella and the patellar button was clamped into position and held. While the cement was hardening, the cementless knee components were placed. Starting with the tibial component, the tibia was subluxed anteriorly and the lug holes of the component were lined up. The tibia was then impacted with an impactor and mallet until the tibial component was in contact with the tibia. The final polyethylene component was inserted. Then, the femoral component was inserted. The lug holes were aligned and the component was impacted into position. The knee was irrigated with Surgiphor Betadine solution. This was allowed to sit in the knee for 3 minutes and then it was irrigated out with saline. After the cement had finally cured, approximately 15min, the clamp was removed from the patella and the knee was taken through range of motion. The patella was tracking with a no-thumbs technique. The capsule was then reapproximated with a No. 1 Vicryl at multiple locations. The capsule was finally closed with a No. 2 Stratafix, barbed suture. The second dosing of 1g TXA was started. Deep tissues were then reapproximated with 0 Vicryl and 2-0 Vicryl. The skin was closed with a running 3-0 Monocryl in a subcuticular fashion. This was reinforced with skin glue. A Mepilex silver dressing was applied along with a [id number] FILOMENA wrap. A CryoCuff was applied. Gagan was transferred to the hospital bed without difficulty an suffering no apparent complication. Gagan has a good prognosis. Physical therapy will start today and without restrictions, weight-bearing as tolerated. Aspirin 81mg BID will be used for DVT prophylaxis.
== END 2022-02-12 17:01 | disposition home or self-care (01) ==
PROVIDERS: Visit Provider Student in an Organized Health Care Education/Training Program
PROC: (CPT 27447; principal; 2022-02-12 13:00)
DX: M17.11 Unilateral primary osteoarthritis, right knee (principal); I10 Essential (primary) hypertension
CPT/HCPCS: 27447; C1776; 76942; 97162; 97530; J0690; J2250; J2405

== ENCOUNTER 2022-02-25 09:16 | Outpatient (CLI) | payer MEDICARE, OTHER, SELFPAY ==
--- NOTE | 2022-02-25 09:00 | DI.RAD_ITS ---
Exam(s) XR KNEE RT 1V XR STANDING ALIGNMENT EXAM: XR KNEE RT 1V CLINICAL HISTORY: 1ST POST OP R TKA. TECHNIQUE: 2D digital imaging was performed. Standing AP views were performed from the pelvis throu gh the ankles. Single lateral view of the right knee. COMPARISON: CR XR KNEE RT 1V from 02/01/2022 CR XR STANDING ALIGNMENT from 02/25/2022 FINDINGS: BONES: No acute fracture is present. No bony destructive lesion is seen. There is a mild overall leg length discrepancy with the left femoral head projecting approximately 5 millimeters superior to the right. JOINTS: Knees: There has been no change in the right total knee prosthesis. Moderate narrowing of th e medial femoral tibial joint space of the left knee. The ankle and hip joints are unremarkable. SOFT TISSUE: Vascular calcifications. IMPRESSION: Degenerative changes of the medial femoral tibial joint of the left knee. Unremarkable right knee pr osthesis. Mild significant leg length discrepancy. DATA REPOSITORY: RADIATION DOSE DELIVERED:
== END 2022-02-25 09:17 | disposition home or self-care (01) ==
LOC: DIORS 09:17
PROVIDERS: Visit Provider Student in an Organized Health Care Education/Training Program
DX: Z96.651 Presence of right artificial knee joint (principal); Z47.1 Aftercare following joint replacement surgery
CPT/HCPCS: 73560; 77073

== ENCOUNTER → 2022-03-25 09:52 | Outpatient (BNVA) | payer MEDICARE, SELFPAY | PROVIDERS: Visit Provider Student in an Organized Health Care Education/Training Program | DX: Z47.1 Aftercare following joint replacement surgery (principal); Z96.651 Presence of right artificial knee joint ==

== ENCOUNTER 2022-04-09 03:13 | Outpatient (CLI) | payer MEDICARE, OTHER, SELFPAY ==
[2022-04-09 08:55] LABS: HGB 14.8 g/dL (13.5-17.5); MCH 31.1 pg (27.0-33.0); MCHC 34.4 % (32.0-36.0); MCV 90 fL (80-95); MPV 9.5 fL (8.0-11.0); Platelet Count 444 10^3/uL (130-400); RBC 4.76 10^6/uL (4.36-5.78); RDW 12.2 % (11.8-14.1); RDW-SD 40.9 fL; WBC 10.14 10^3/uL (4.4-10.8)
[2022-04-09 09:25] LABS: BUN 15 mg/dL (7-18); CREATININE 1.1 mg/dL (0.70-1.30); Calcium 9.6 mg/dL (8.5-10.1); Chloride 99 mmol/L (98-107); Estimated GFR 71.32 (mL/min/1.73m2); Glucose 100 mg/dL (74-106); Potassium 3.3 mmol/L (3.5-5.1); Sodium 138 mmol/L (136-145)
== END 2022-04-09 03:14 | disposition home or self-care (01) ==
LOC: LBO 03:14
PROVIDERS: Visit Provider Student in an Organized Health Care Education/Training Program
DX: M17.12 Unilateral primary osteoarthritis, left knee (principal); Z01.818 Encounter for other preprocedural examination
CPT/HCPCS: 36415; 80048; 85027

== ENCOUNTER 2022-04-16 09:54 | Day surgery (SDC) | payer MEDICARE, OTHER, SELFPAY ==
[2022-04-16] VITALS (9 sets, daily range): BP systolic 91–135; BP diastolic 42–85; PULSE 56–75; RESP 12–18; TEMP 36.2–36.6; O2SAT 94–99; BMI 24.0
[2022-04-16] MEDS: Lactated Ringers 1,000 ML 80 ML IV (10:30)
[2022-04-16] MEDS: Acetaminophen 500 MG TAB 1000 MG PO (10:59)
[2022-04-16] MEDS: Gabapentin 300 MG CAP PO (11:00)
[2022-04-16] MEDS: Celecoxib 200 MG CAP 400 MG PO (11:00)
--- NOTE | 2022-04-16 11:26 | ANES.PREOP_ITS ---
General Info Date of Service Date Performed: 04/16/22 Height: 5 ft 9 in Weight: 74 kg Body Mass Index (BMI): 24.0 Surgical Procedure: Operation Date: 04/16/22 12:55 Proposed Procedure Side Surgeon p Knee Total Arthroplasty Cementless CR (7 Femur,6 Tibia) Left Rajendra Swain MD Meds Allergies and Home Medications Allergies Allergy/AdvReac Type Severity Reaction Status Date / Time bee venom protein (honey bee) Allergy Severe Anaphylaxis Verified 04/15/22 10:31 Home Medication Medication Instructions Recorded omeprazole 20 mg capsule,delayed 20 mg PO DAILY 08/27/21 release trazodone 100 mg tablet 100 mg PO DAILY 08/27/21 simvastatin 20 mg tablet 20 mg PO DAILY 11/20/21 amlodipine 10 mg tablet 10 mg PO HS 02/01/22 epinephrine 0.3 mg/0.3 mL 0.3 mg IM DIRECTED 02/08/22 injection, auto-injector (EpiPen) acetaminophen 500 mg tablet 1,000 mg PO Q8H PRN pain #90 tabs 02/12/22 chlorthalidone 25 mg tablet 25 mg PO DAILY 02/12/22 potassium 99 mg tablet 99 mg PO DAILY 04/15/22 vitamin B12 500 mcg-folic acid 400 1 tab PO DAILY 04/15/22 mcg tablet Current Visit Medications: Current Medications Generic Name Dose Route Start Last Admin Trade Name Freq PRN Reason Stop Dose Admin Acetaminophen 1,000 mg 04/16/22 06:00 04/16/22 10:59 Acetaminophen 500 Mg Tab PO 04/16/22 16:00 1,000 mg PREOP MARY Administration Acetaminophen 1,000 mg 04/16/22 14:00 Acetaminophen 500 Mg Tab PO TID MARY Aspirin 81 mg 04/16/22 20:00 Aspirin E.C. 81 Mg Tabec PO BID MARY Celecoxib 400 mg 04/16/22 06:00 04/16/22 11:00 Celecoxib 200 Mg Cap PO 04/16/22 16:00 400 mg PREOP MARY Administration Celecoxib 200 mg 04/16/22 20:00 Celecoxib 200 Mg Cap PO BID MARY Dexamethasone 4 mg 04/17/22 08:30 Dexamethasone 4 Mg Tab PO 04/18/22 08:31 DAILY MARY Docusate Sodium 100 mg 04/16/22 07:30 Docusate Sodium 100 Mg Cap PO BID PRN PRN Constipation Gabapentin 300 mg 04/16/22 06:00 04/16/22 11:00 Gabapentin 300 Mg Cap PO 04/16/22 16:00 300 mg PREOP MARY Administration Gabapentin 300 mg 04/16/22 22:00 Gabapentin 300 Mg Cap PO HS MARY Hydromorphone HCl 0.5 mg 04/16/22 07:30 Hydromorphone 2 Mg/Ml Syr IVP Q2H PRN PRN Tranexamic Acid 1,000 mg/ 60 mls @ 360 mls/hr 04/16/22 06:00 Sodium Chloride IVPB 04/16/22 16:00 PREOP MARY Ringer's Solution 1,000 mls @ 80 mls/hr 04/16/22 06:00 IV 05/15/22 23:59 INFUSION MARY Cefazolin Sodium/Dextrose 2 gm in 50 mls @ 100 mls/hr 04/16/22 06:00 Ancef Duplex IVPB 05/15/22 23:59 PREOP MARY Cefazolin Sodium/Dextrose 1 gm in 50 mls @ 100 mls/hr 04/16/22 08:00 Ancef Duplex IVPB 04/17/22 00:29 Q8H MARY IV Miscellaneous Supplies 1 each 04/16/22 06:00 Iv Access IV 05/15/22 23:59 DIRECTED MARY Ondansetron HCl 4 mg 04/16/22 07:30 Ondansetron 4 Mg/2 Ml Vial IVP Q6H PRN PRN Nausea Oxycodone HCl 0 mg 04/16/22 07:30 Oxycodone 5 Mg Tab PO Q3H PRN PRN Pain Pantoprazole Sodium 40 mg 04/17/22 07:30 Pantoprazole 40 Mg Tabcr PO DAILY@0730 MARY Polyethylene Glycol 17 gm 04/16/22 07:30 Polyethylene Glycol 3350 17 Gm Packet PO BID PRN PRN Constipation Sodium Chloride 0 ml 04/16/22 06:00 Normal Saline Flush 10 Ml Syr IV 05/15/22 23:59 PRN PRN Sodium Chloride 0 ml 04/16/22 06:00 Normal Saline 10 Ml Vial IJ 05/15/22 23:59 DIRECTED PRN Sterile Water 0 ml 04/16/22 06:00 Water,Injection,Sterile 10 Ml Vial IJ 05/15/22 23:59 DIRECTED PRN PFSH Active Problems Active Problems: Problem Status Onset Code History of total right knee replacement 02/12/22 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 reports for hand surgery he had ether and was really sick, pt. reports he was 14 Surgical History Surgical History (Updated 02/25/22 @ 09:40 by Miranda Nava) H/O retained foreign body fully removed Right palm History of carpal tunnel surgery of left wrist History of carpal tunnel surgery of right wrist History of hemorrhoidectomy History of knee surgery arthroscopy - right Status post hammertoe correction Tobacco Smoking/Tobacco Use Status: Former Tobacco Use Alcohol Alcohol Intake: current Alcohol intake frequency: 0-2 drinks per day Alcohol type: beer Substance Use Substance use type: does not use Details: alcohol: t-1, 1800 one beer Vital Signs and Lab Results Vital Signs Most Recent Vital Signs in EMR: Most Recent Vital Signs Temp Pulse Resp BP Pulse Ox 36.5 C 75 18 135/85 99 04/16/22 10:08 04/16/22 10:08 04/16/22 10:08 04/16/22 10:08 04/16/22 10:08 Lab Results Blood Type / Crossmatch: No Data to Display Complete Blood Count: White Blood Count 10.14 10^3/uL (4.4-10.8) 04/09/22 08:50 Red Blood Count 4.76 10^6/uL (4.36-5.78) 04/09/22 08:50 Hemoglobin 14.8 g/dL (13.5-17.5) 04/09/22 08:50 Hematocrit 43.0 % (40.0-50.0) 04/09/22 08:50 Platelet Count 444 10^3/uL (130-400) H 04/09/22 08:50 Complete Metabolic Panel: Sodium 138 mmol/L (136-145) 04/09/22 08:50 Potassium 3.3 mmol/L (3.5-5.1) L 04/09/22 08:50 Chloride 99 mmol/L (98-107) 04/09/22 08:50 Carbon Dioxide 32.0 mmol/L (21.0-32.0) 04/09/22 08:50 BUN 15 mg/dL (7-18) 04/09/22 08:50 Creatinine 1.1 mg/dL (0.70-1.30) 04/09/22 08:50 Est GFR (CKD-EPI 2020) 71.32 (mL/min/1.73m2) 04/09/22 08:50 Calcium 9.6 mg/dL (8.5-10.1) 04/09/22 08:50 Glucose 100 mg/dL (74-106) 04/09/22 08:50 Liver Function Panel: No Data to Display Coagulation Panel: No Data to Display Cardiac Panel: No Data to Display Arterial Blood Gas: No Data to Display Venous Blood Gas: No Data to Display Pancreas Panel: No Data to Display Thyroid Panel: No Data to Display Infectious Disease: No Data to Display Blood Cultures: No Data to Display Toxicology Panel: No Data to Display Imaging and Studies Imaging and Studies Study information below may be from another EMR and interpreted by another provider. Please see original notes in EMR for more complete details. EKG Summary: 12/18/20: Conclusion Sinus tachycardia...rate> 99 Right bundle branch block...QRSd>120, terminal axis(90,270) Inferior infarct, old...Q >35mS, II III aVF. Stress Test Summary: 03/26/2021: Outpatient, [place], [facility] records EF 31%, diffuse hypokinesis No perfusion defects noted. Anesthesia Assessment and Plan Anesthesia History Personal History: No History of Anesthesia Complications Family History: No Family History of Anesthesia Complications Exercise Tolerance Exercise Tolerance: Metabolic Equivalents>4 Pertinent Negatives Pertinent Negatives: No Symptoms of GERD (Well controlled with meds), No Major Cardiovascular Symptoms or Complaints, No Major Pulmonary Symptoms or Complaints and No History of CVA/TIA Cardiac & Pulmonary Exam Cardiac Exam: Normal S1/S2 Heart Sounds Pulmonary Exam: Clear Bilateral Breath Sounds Implantable Cardiac Device Does patient have a Pacemaker or an ICD?: No Airway Exam Known Difficult Airway: No Mallampati Class: 2 Mouth Opening: Normal (> 3cm) Thyromental Distance: Greater than 3 cm Neck Range of Motion: Full ROM Neck Circumference: Normal Teeth Condition: Normal Dentition Airway Comments: Reports no history of KIM, significant snoring/nightly per spouse ASA Classification ASA Score: ASA 2 Emergency Case?: No NPO Status NPO Status: NPO Clears >2 hours, Solids >8 hours Anesthesia Plan Resuscitation Status: Full Code Anesthesia Technique: Spinal Anesthesia Airway Planned: Natural Airway Pain Management: Surgeon and patient request nerve block (Left adductor canal block) Monitors Used: Standard Monitors
--- NOTE | 2022-04-16 11:45 | W.ANESNERVE ---
Nerve Block Single Injection Procedure Date and Time Date Performed: 04/16/22 Procedure Start: 11:40 Location Where Procedure Performed Procedure Location: Day Surgery Unit Reason Performed: Postoperative Analgesia Requesting Provider: Rajendra Swain Timeout Performed Timeout Performed: Yes Monitoring Used ECG, Blood Pressure, SpO2 and See EMR for corresponding vital signs Sterility Sterility: Hand Hygiene, Surgical Cap, Surgical Mask, Sterile Gloves, Sterile Drape/Sheet and Chlorhexidine Sedation Given During Procedure Sedation Given (Indicate Dose Given): Versed IV Dose:: 2 mg Patient Mental Status Patient Mental Status: Sedate with meaningful communication Nerve Block 1st Nerve Block: Laterality: Left Block Type: Adductor Canal Needle / Catheter Used: 100mm SonoPlex II Local Anesthetic Bolus (Indicate Dose Given): Lidocaine used for local infiltration of skin, Injected in 3-5ml increments after negative blood aspiration and Bupivacaine 0.25% Dose:: 15 ml Additives (Indicate Dose Given): None Ultrasound: Sterile probe cover and gel used Ultrasound Image Saved?: Yes Nerve Stimulator: Not Used Paresthesia: None Procedure Tolerated: No Complications and Patient tolerated well Procedure Outcome: Successful Performed By: Xiomara Cobb
[2022-04-16] MEDS: ceFAZolin 2 GM/50 ML BAG IVPB (12:18)
--- NOTE | 2022-04-16 13:33 | PDOC.DSDIS_ITS ---
Date of service: 04/16/22 Time of Service: 14:23 Discharge Plan Disposition Patient Disposition: HOME Condition: Good Discharge Details Reason For Visit: Left Knee DJD Attending Provider: Rajendra Swain Primary Care Provider: [facility] Home Meds and New Rx's Prescriptions: New celecoxib 200 mg capsule 200 mg PO BID PRN (Reason: pain) Qty: 60 1RF aspirin 81 mg tablet,delayed release (DR/EC) 81 mg PO BID Qty: 60 0RF gabapentin 300 mg capsule 300 mg PO QHS Qty: 14 0RF hydromorphone 2 mg tablet 2 mg PO Q4H PRN (Reason: pain) Qty: 18 0RF Continued simvastatin 20 mg tablet 20 mg PO DAILY omeprazole 20 mg capsule,delayed release(DR/EC) 20 mg PO DAILY trazodone 100 mg tablet 100 mg PO DAILY amlodipine 10 mg tablet 10 mg PO HS potassium 99 mg Tablet 99 mg PO DAILY vitamin G87-rimms acid 500-400 mcg Tablet 1 tab PO DAILY Rx Instructions: administer with a meal acetaminophen 500 mg tablet 1,000 mg PO Q8H PRN Qty: 90 0RF Rx Instructions: Take two tablets up to every 8 hours as needed for pain epinephrine [EpiPen] 0.3 mg/0.3 mL Auto-Injector 0.3 mg IM DIRECTED chlorthalidone 25 mg Tablet 25 mg PO DAILY Discharge Instructions Additional Instructions: Total Knee Discharge Instructions Activity: The most important activity is to walk and to work on gentle motion (both flexion and extension). You should try to take short walks a few times a day. It is important that when resting you work on keeping the knee straight. Avoid putting a pillow behind the knee as this will encourage flexion. Work on range of motion exercises as provided by Physical Therapy. - Start outpatient physical therapy within 2 weeks. - You should wear the TATYANA hose on both legs for 2 weeks. You may remove these at night. You may also use any compression sock in place of the TATYANA hose. - Utilize [employer] to review exercises, see videos on exercises and obtain basic information pertaining to your surgery and your recovery. Dressing: Remove the Tree wrap by 2 days after your surgery and put on the TATYANA stocking given to you from the hospital. Keep the surgical dressing (underneath the TREE wrap) in place for at least one week. After the first week it may be removed and replaced with light gauze and tape or nothing. The wound and dressing may get wet after 3 days but avoid soaking the dressing or otherwise it will need to be changed. Many people prefer covering the dressing with cling wrap (saran wrap) to minimize it from getting soaked. If it gets wet, just pat dry. If it starts to peel off then it will need to be changed. Medications: - You should take Tylenol and anti-inflammatory Celebrex as your primary pain control medications. If the Celebrex is too expensive or not covered, please call the office for another alternative (Advil/Ibuprofen or Naproxen/Aleve) - You have been prescribed a stronger pain medication Hydromorphone for breakthrough pain, take as needed as prescribed. - You should continue to take a stomach acid reduction agent Omeprazole, which you take at baseline, to help reduce stomach acid and reflux. - You have been prescribed Gabapentin to take at night for restlessness and nerve pain. - You will be taking Aspirin 81mg twice a day for DVT prevention unless instructed otherwise. - If you have constipation you should take Colace or Miralax (both [id number]). It takes most people 3-4 days to have a bowel movement. Follow-up: 2 weeks If you have any acute concerns or questions, please do not hesitate to contact the office at [phone]. You may contact Dr. Swain with any questions after hours through the hospital at [phone] or on his cell phone at [phone]. Stand Alone Forms: Anesthesia Discharge Inst., Deon Rivas (U) Referrals: Rajendra Swain MD [ [facility] STAFF PHYSICIAN] - Equipment/Supplies: Walker Activity:: Elevate Remove Dressings/Wound Care:: Do Not Remove Shower/Bathe:: Cover Diet:: As Tolerated Discharge Orders Discharge Orders: Discharge Order (Routine); Ordered 04/16/22 Ordered By: Rajendra Swain DS: Diagnosis Discharge Diagnosis (1) Osteoarthritis of left knee: Status: Acute
--- NOTE | 2022-04-16 15:16 | W.ANESPOSTOP ---
Postoperative Evaluation Date, Time and Location Date Performed: 04/16/22 Time Performed: 15:02 Patient Location: Day Surgery Unit Vital Signs Most Recent Imported Vital Signs: Most Recent Vital Signs Temp Pulse Resp BP Pulse Ox 36.2 C L 59 L 16 97/57 L 96 04/16/22 14:42 04/16/22 14:42 04/16/22 14:42 04/16/22 14:42 04/16/22 14:42 Pain Score Most Recent Pain Score: Most Recent Pain Score Pain Level 0 04/16/22 14:42 Assessment Mental Status: Awake (Alert & Oriented to Patient Baseline) Airway and Respiratory Function: Patent airway with normal (patient baseline) respiratory exam Cardiovascular Function: Hemodynamically Stable Hydration Status: Adequately Hydrated Nausea & Vomiting: No Nausea or Vomiting Pain: Pt. Denies Any Pain Peripheral Nerve Block: Regional nerve block not resolved at time of post operative discharge
--- NOTE | 2022-04-16 15:52 | PT.INIE ---
Date of service: 04/16/22 Time of Service: 15:52 PT Notes Visit Reasons: Left Knee DJD Physical Therapy Day Surgery Initial Evaluation Date: 04/16/2022 Referring Doctor: JUANY Bailey PT Orders: PT CONSULT: S/P Ortho surgery Precautions: WBAT on L LE with AD. Patient Profile/Admitting Diagnosis: Zachariah is a 72-year-old male with degenerative joint disease of the left knee and is status post left total knee arthroplasty on postoperative day 0. 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 Independent with all aspects of ADLs prior to surgery. Equipment Owned/DME: [employer] Subjective: Reports 0/10 pain in the L knee at rest.? Denies headache, chest pain, and lightheadedness throughout session.? Objective: General Observation: Seated on bedside chair all dressed up and ready to go.? FILOMENA wraps to L LE.? TEDS to R leg.? Naa present throughout evaluation.? Mental Status: Alert and oriented x 4 Pain: Denies ROM: Right Lower Extremity: Hip flexion WFL. Hip abduction WFL. Knee flexion 10 degrees to 100 degrees.? Knee extension -10 degrees.? Ankle dorsiflexion WFL. Ankle plantarflexion WFL. Left Lower Extremity: Hip flexion WFL. Hip abduction WFL. Knee flexion WFL. Ankle dorsiflexion WFL. Ankle plantarflexion WFL. Strength: Right Lower Extremity: Hip flexors 5/5. Hip abductors 5/5. Knee flexors 4-/5. Knee extensors 4-/5. Ankle dorsiflexors 5/5. Ankle plantarflexors 5/5. Left Lower Extremity:Hip flexors 5/5. Hip abductors 5/5. Knee flexors 3-/5. Knee extensors 3-/5. Ankle dorsiflexors 5/5. Ankle plantarflexors 5/5. Sensation: Intact as to pain and light pressure in bilateral lower extremities Bed Mobility/Transfers: Supine to sit supervision Sit to stand? standby assist Stand to sit standby assist Bed to chair standby assist THERA EX: SLR x 10 Seated hip flexion x 10 LAQs x 10 Ankle DF/PF x 10 Glutes sets x 10 Quads sets x 10 Gait: Tolerated level surface ambulation of 150 feet bilateral axillary crutches requiring standby assist.? Minimal verbal cues given for correct three-point gait pattern and overall safety. Good quad activation on L. Balance: Static Sitting: Normal Dynamic Sitting: Normal Static Standing: Fair Dynamic Standing: Fair Special Tests: Mobility Limitations Standardized Measure [facility] 6 clicks Basic Mobility Inpatient Short Form: Raw Score: 24? CMS Score: 0% deficit Informed Consent/Education:? Patient instructed in purpose of PT consult.? Education and training on initial set of exercises that can be done at home have been completed with patient with reference to the [employer] breanna. Assessment: Patient presents with clinical signs and symptoms consistent with current/admitting diagnoses that have resulted to mobility limitations and gait instability as demonstrated by the following impairment level findings: 1.? Decreased strength to L knee major muscle groups 2.? Impaired standing balance 3.? Limitation of joint range of motion in L knee Impairments are contributing to the following functional limitations: 1.? Inability to safely ambulate without assistive device 2.? Increase completion time for mobility ADL performance 3.? Increased fall risk Patient is assessed as a [id number] moderate complexity based on the following: History: 71-year-old male with impairment level findings, functional limitations, and past medical history as indicated above Examination: Demonstrable impairment in strength, balance, and mobility level with underlying impairments and functional limitations as documented above Presentation: Evolving Decision Makin moderate complexity Goals: N/A.? PT evaluation and 1-2 treatment sessions only for functional mobility training using recommended AD and for HEP instruction. Plan of Care/Treatment Plan: N/A.? PT evaluation and 1-2 treatment session only for functional mobility training using recommended AD and for HEP instruction. DISCHARGE RECOMMENDATIONS: [] ? Home with no services [] [] ? Home with services [specify] [X] ? Home with outpatient PT.? Home when medically cleared by orthopedic surgeon.? Will benefit from outpatient PT services in order to facilitate return to independent community ambulation and maximize functional outcomes. [] ? SNF for continued rehabilitation [] [] ? Intermediate Care [] [] ? SNF versus LTC based on ability to participate and progress [] TREATMENT CODE/TIME: 36875 x 23 minutes beginning at 15:52 PM. Thank you for the opportunity to participate in the care of this patient. Ana Ravi PT, DPT, CLT [facility] [place], [place]
--- NOTE | 2022-04-16 22:48 | W.PM.OP ---
Date of service: 04/16/22 Time of Service: 13:40 Operative Note Operative Note DATE OF PROCEDURE: 04/16/22 PRE-OP DIAGNOSIS: Left Knee Osteoarthritis POST-OP DIAGNOSIS: same PROCEDURE: Left Total Knee Replacement SURGEON: Rajendra Swain QUALITY SYSTEMS MANAGER: Miranda Nava ANESTHESIA TYPE: Spinal Refer to Anesthesia Record ESTIMATED BLOOD LOSS: 50 PATHOLOGY: none sent TOURNIQUET TIME: 0 COMPLICATIONS: None Patient was transported to: PACU Patient's condition: stable Implants: 1. Depuy Attune Cementless Cruciate Retaining Femoral Component, Size 7 2. Depuy Attune Cementless Rotating Platform Tibial Component, Size 6 3. Depuy Attune 7x6 CR/RP Poly 4. Depuy Attune Patellar Component, Size 35 Indications: I have seen Gagan in clinic for symptoms of knee arthritis, confirmed with radiographic findings. Gagan has exhausted nonoperative methods and was having significant limitations in daily function and desired better function and less pain. I discussed the technical details of a knee replacement. I explained the risks of the procedure to include, but not limited to, bleeding, infection, pain, stiffness, fracture, damage to nerves and vessels, damage to muscles and tendons, loosening, need for repeat procedure, blood clot and cardiopulmonary demise. Despite these risks, Gagan elected to proceed. Findings: There was significant signs of arthritis throughout the knee focused mostly within the medial femur. Procedure Description: Gagan was greeted in the preoperative holding area where the correct side was identified and marked. The consent was reviewed with the patient and signed. The history and physical was updated. All questions were answered. Preoperative medications were administered: Acetaminophen 1000mg, Celebrex 400mg, and Gabapentin 300mg. An adductor canal block was then administered by the anesthesia team in the PACU. Gagan was taken back to the operating room. A spinal anesthestic was then administered. The patient was placed into the supine position on the operating room table. A nonsterile tourniquet was placed high onto the leg but only used for cementing. Posts were placed for positioning during the procedure. All bony prominences were well padded. Prophylactic antibiotics in the form of Cefazolin were administered. 1g of Tranxemic Acid was given intravenously within 30 minutes of incision. The left leg was then prepped with Chloraprep and draped in a standard fashion with impervious stockinette. A second prep with Chloraprep was performed prior to application of Iodine impregnated skin protection. A timeout to confirm correct identity, side and site, procedure, allergies, anesthesia, and medical concerns was performed. With the knee in some flexion, a midline incision was made overlying the knee. Full thickness skin flaps were raised once the extensor mechanism was encountered. These were raised medially and laterally. Any bleeding was controlled with electrocautery. Once the extensor mechanism was fully exposed, a medial parapatellar arthrotomy was performed in a flexed position. All bleeding from the arthrotomy and the geniculate arteries was coagulated. A medial subperiosteal peel was performed with electrocautery to the midcoronal plane. The fat pad was removed while keeping the patellar tendon protected. The anterior distal femur synovium was removed for later visualization. The ACL and PCL were resected and the anterior horn of the lateral meniscus was transected. The knee was then flexed with the patella everted. Large osteophytes from the tibia were removed. Large osteophytes from the femur were removed. Using a step drill, and based on preoperative templating, the femoral canal was entered. This was done with a step drill without any difficulty. The intramedullary distal femoral cut guide was inserted, set to a 6 degree valgus cut and 9mm cut thickness. The distal femoral cut guide was then held in position and pinned. With the soft tissues protected, the distal cut was performed. This was passed over a few times to ensure a planar cut. I then turned attention to the tibia. The extramedullary guide was placed onto the leg. The distal aspect was slid medial to adjust for position of center of ankle and stay in line with shaft of the tibia. Approximately 3-5 degrees of posterior slope was kept in the proximal cutting guide. The center of the guide was aligned with the PCL. The stylus was used to assess cut thickness. The medial side, most involved side, was set for a 4mm cut. This was then held in position and pinned into place with 2 additional pins and a cross pin for stability. The medial and lateral collateral ligaments were protected and the cut was performed. With this completed, it was assessed and noted to be of appropriate dimensions. The guide was removed. A spacer block was inserted and the knee was brought into extension. The 6mm spacer block provided full extension, without hyperextension and with stability of both the medial and lateral collateral ligaments was assessed. The pins from the femur and the tibia were then removed. The distal femur was then sized. The anterior stylus was placed onto the lateral ridge of the anterior femur. This indicated a size 7 femur. The external rotation of the guide was adjusted to 5 degrees to match the epicondylar axis, perpendicular to [place]?s line. The 4-in-1 cutting guide was the placed. The posterior medial femur cut was evaluated and appeared of good thickness. The spacer block was inserted underneath the cutting guide and stability was confirmed in 90 degrees of flexion. An radha wing was used to confirm appropriate position of the anterior cut to avoid notching. This cutting guide was ensured to be flush on the cut surface and then pinned into place with headed pins. While protecting the soft tissues, quad tendon, and collateral ligaments, the anterior and posterior cuts were performed with a saw. The central two pins were removed and the posterior and anterior chamfers were cut next. The notch-cutting guide was placed. This was pinned to lateralize the femoral component as much as possible while keeping it flush on the cut surface. This was then pinned into position. A reciprocating saw was used to make the notch cut. A rasp smoothed the cut surfaces. The medial and lateral menisci were removed. A trial femoral component was then inserted, impacted down to the cut surfaces, and the lug holes were drilled. A provisional trial tibial component was placed and the knee was brought through range of motion. There was noted to be excellent extension and flexion. There was no significant instability. The patella was tracking without thumbs. A size 6mm polyethylene component provided the best range of motion and stability with less than 2mm gapping with medial and lateral stress and full extension without significant hyperextension. The tibial cut surface was fully exposed. The tibia was then sized as a 5. The tibia had been previously marked during trialing to correspond to the center of the tibial component to help with rotation. The trial was aligned to this gagan, approximately rotated to the medial 1/3rd of the tibial tubercle. The trial was pinned into place. The tibia was prepared with a reamer and a keel punch and lug holes. The knee was then brought into extension and the patella was measured as 25mm. Using the patellar clamp and cut guide, this was resected to a flat surface with at least 13mm of thickness remaining. The size 35 patella fit the best. This was oriented and then clamped into position. The lugs were drilled. The trial components were removed. The final components were opened on the back table. The periosteal and capsular tissues, especially posteriorly, around the knee were then systematically injected with a periarticular cocktail consisting of 246mg of Ropivacaine, 0.5mg of Epinephrine, and 30mg of Ketorolac, diluted to 100cc. On the back table, with the implants opened, the cement was mixed. One batch of high viscosity cement was prepared with vacuum assistance. After the cement was ready a small amount was placed on the cut surface of the patella and the patellar button was clamped into position and held. While the cement was hardening, the cementless knee components were placed. Starting with the tibial component, the tibia was subluxed anteriorly and the lug holes of the component were lined up. The tibia was then impacted with an impactor and mallet until the tibial component was in contact with the tibia. The final polyethylene component was inserted. Then, the femoral component was inserted. The lug holes were aligned and the component was impacted into position. The knee was irrigated with Surgiphor Betadine solution. This was allowed to sit in the knee for 3 minutes and then it was irrigated out with saline. After the cement had finally cured, approximately 15min, the clamp was removed from the patella and the knee was taken through range of motion. The patella was tracking with a no-thumbs technique. The capsule was then reapproximated with a No. 1 Vicryl at multiple locations. The capsule was finally closed with a No. 2 Stratafix, barbed suture. The second dosing of 1g TXA was started. Deep tissues were then reapproximated with 0 Vicryl and 2-0 Vicryl. The skin was closed with a running 3-0 Monocryl in a subcuticular fashion. This was reinforced with skin glue. A Mepilex silver dressing was applied along with a [id number] FILOMENA wrap. A CryoCuff was applied. Gagan was transferred to the hospital bed without difficulty an suffering no apparent complication. Gagan has a good prognosis. Physical therapy will start today and without restrictions, weight-bearing as tolerated. Aspirin 81mg BID will be used for DVT prophylaxis.
== END 2022-04-16 16:20 | disposition home or self-care (01) ==
PROVIDERS: Visit Provider Student in an Organized Health Care Education/Training Program
PROC: (CPT 27447; principal; 2022-04-16 12:45)
DX: M17.12 Unilateral primary osteoarthritis, left knee (principal); I10 Essential (primary) hypertension
CPT/HCPCS: 27447; C1776; 76942; 97162; J0690; J1100; J2250; J2370; J2405

== ENCOUNTER 2022-04-29 10:19 | Outpatient (CLI) | payer MEDICARE, OTHER, SELFPAY ==
--- NOTE | 2022-04-29 09:45 | DI.RAD_ITS ---
Exam(s) XR KNEE LT 1V XR STANDING ALIGNMENT EXAM: XR STANDING ALIGNMENT CLINICAL HISTORY: 1ST POSTOP L TKA. TECHNIQUE: 2D digital imaging was performed. Standing AP views were performed from the pelvis throu gh the ankles. Lateral view left knee COMPARISON: CR XR KNEE LT 3V AP,LAT,KIERRA from 11/20/2021 CR XR STANDING ALIGNMENT from 02/01/2022 CR XR KNEE RT 1V from 02/01/2022 CR XR KNEE RT 1V from 02/25/2022 CR XR KNEE LT 1V from 04/29/2022 FINDINGS: BONES: No acute fracture is present. No bony destructive lesion is seen. Leg length discrepancy: None JOINTS: Knees: Satisfactory alignment of bilateral total knee prostheses. The ankle joints show degenerative changes, left greater than right. The hip joints are unremarkable. SOFT TISSUE: Mild bilateral lower leg edema. IMPRESSION: Bilateral total knee prostheses. No significant leg length discrepancy. DATA REPOSITORY: RADIATION DOSE DELIVERED:
== END 2022-04-29 10:20 | disposition home or self-care (01) ==
LOC: DIORS 10:20
PROVIDERS: Visit Provider Student in an Organized Health Care Education/Training Program
DX: Z96.652 Presence of left artificial knee joint (principal); Z96.651 Presence of right artificial knee joint; Z47.1 Aftercare following joint replacement surgery
CPT/HCPCS: 73560; 77073

== ENCOUNTER 2022-05-30 10:05 | Outpatient (CLI) | payer MEDICARE, OTHER, SELFPAY ==
--- NOTE | 2022-05-30 08:45 | DI.RAD_ITS ---
Exam(s) XR KNEES MERCHANT ONLY EXAM: XR KNEES MERCHANT ONLY INDICATION: patellofemoral pain bilaterally after TKA. COMPARISON: CR XR KNEE RT 1V from 02/25/2022 CR XR KNEE LT 1V from 04/29/2022 CR XR STANDING ALIGNMENT from 04/29/2022 TECHNIQUE: 2D digital imaging was performed. Three views. FINDINGS: Bilateral Merchant views. Bilateral total knee prostheses. The patella are normally aligned. No ab normal bony lucencies. DATA REPOSITORY: RADIATION DOSE DELIVERED:
== END 2022-05-30 10:06 | disposition home or self-care (01) ==
LOC: DIORS 10:06
PROVIDERS: PCP Nurse Practitioner Family; Referring Provider Nurse Practitioner Family; Visit Provider Student in an Organized Health Care Education/Training Program
DX: Z96.651 Presence of right artificial knee joint (principal); Z96.652 Presence of left artificial knee joint; Z47.1 Aftercare following joint replacement surgery
CPT/HCPCS: 73565

== ENCOUNTER → 2022-07-11 09:20 | Outpatient (BNVA) | payer MEDICARE, SELFPAY | PROVIDERS: PCP Nurse Practitioner Family; Referring Provider Nurse Practitioner Family; Visit Provider Physician Assistant | DX: Z47.1 Aftercare following joint replacement surgery (principal); Z96.652 Presence of left artificial knee joint; Z96.651 Presence of right artificial knee joint ==

== ENCOUNTER 2022-09-02 09:39 | Outpatient (CLI) | payer MEDICARE, SELFPAY ==
--- NOTE | 2022-09-02 09:30 | DI.RAD_ITS ---
Exam(s) XR HAND LT COMPLETE EXAM: XR HAND LT COMPLETE CLINICAL HISTORY: left thumb pain. TECHNIQUE: 2D digital imaging was performed. Three views. COMPARISON: No exams were available for comparison FINDINGS: BONES: No acute fracture is present. No bony destructive lesion is seen. Deformity ulnar styloid like ly related to old fracture. JOINTS: No dislocation present. Severe narrowing radial scaphoid joint. Dorsal tilt of the lunate. Question widening scapholunate distance. Degenerative changes at capitate lunate joint. Degenerati ve changes 1st carpal metacarpal joint as well as metacarpophalangeal joints of the index and middle fingers. Mild degenerative changes interphalangeal joints, greatest at the thumb. SOFT TISSUE: Normal. IMPRESSION: Degenerative changes. DATA REPOSITORY: RADIATION DOSE DELIVERED:
== END 2022-09-02 09:40 | disposition home or self-care (01) ==
LOC: DIORS 09:39
PROVIDERS: PCP Physician Assistant; Referring Provider Physician Assistant; Visit Provider Student in an Organized Health Care Education/Training Program
DX: M19.132 Post-traumatic osteoarthritis, left wrist; R20.2 Paresthesia of skin; M79.642 Pain in left hand
CPT/HCPCS: 20550; 20600; 73130; J1030

== ENCOUNTER 2022-11-08 07:35 | Day surgery (SDC) | payer MEDICARE, SELFPAY ==
--- NOTE | 2022-11-07 19:24 | W.PM.DSUDISC ---
Date of service: 11/08/22 Time of Service: 09:45 Discharge Plan Disposition Patient Disposition: Home Condition: Good Discharge Details Reason For Visit: EGD and colonoscopy Attending Provider: Sony Gibbs Primary Care Provider: Lulu Tello Home Meds and New Rx's Prescriptions: Continued simvastatin 20 mg tablet 20 mg PO DAILY omeprazole 20 mg capsule,delayed release(DR/EC) 20 mg PO DAILY trazodone 100 mg tablet 100 mg PO DAILY amlodipine 10 mg tablet 10 mg PO HS ibuprofen [Advil] 200 mg tablet 800 mg PO Q6H PRN tamsulosin 0.4 mg capsule 0.4 mg PO QHS primidone 50 mg Tablet 25 mg PO HS epinephrine [EpiPen] 0.3 mg/0.3 mL Auto-Injector 0.3 mg IM DIRECTED chlorthalidone 25 mg Tablet 25 mg PO DAILY Discontinued polyethylene glycol 3350 17 gram/dose powder 238 g PO ONCE Qty: 238 0RF Rx Instructions: take per colonoscopy instructions bisacodyl [Dulcolax (bisacodyl)] 5 mg tablet,delayed release (DR/EC) 5 mg PO ONCE Qty: 4 0RF Rx Instructions: take per colonoscopy instructions Discharge Instructions Instructions: Diverticulosis (GEN), Diverticulitis (GEN), Diverticulosis Diet (GEN), Colorectal Polyps (GEN) Additional Instructions: 1. If tolerated, consume a soft, low fiber diet for 1-2 days. 2[address] Do not drive, drink alcohol, operate machinery, make critical decisions, or do activities that require coordination or balance for 24 hours. 3. Because air was put into your colon during the procedure, expelling air from your rectum (passing gas or farting) is normal. 4. You may not have a bowel movement for 1-3 days because of the colonoscopy prep. This is normal. 5. You may experience a sore throat for 24 to 48 hours. You may use throat lozenges or gargle with warm salt water to relieve the discomfort. 6. Because air was put into your stomach during the procedure, you may experience some belching. 7. Go directly to the emergency room if you notice any of the following: Develop chills (warm to touch), or if you have a thermometer and your temperature is above 101 Difficulty breathing or difficultly swallowing Persistent vomiting Severe abdominal pain, other than gas cramps Severe chest pain Black, tarry stools Any bleeding ? exceeding one tablespoon 8. Call your physician if the site where your intravenous was started becomes red, swollen, painful, and warm to touch. 9. Your physician has reviewed your pre-procedure medications. Please continue to take those medications as previously ordered. You will be given specific information/education regarding any changes to your medications before leaving. Activity:: Activity as Tolerated Diet:: As Tolerated Discharge Orders Discharge Orders: Discharge Order (Routine); Ordered 11/07/22 Ordered By: Sony Gibbs DS: Diagnosis Discharge Diagnosis (1) Positive FIT (fecal immunochemical test): Status: Acute Asessment and Plan: I removed 2 polyps at the rectosigmoid junction. I will follow-up on the pathology reports
--- NOTE | 2022-11-07 19:26 | ENDO_ITS ---
Date of service: 11/08/22 Time of Service: 09:47 Endoscopy Report DATE OF PROCEDURE: 11/08/22 PRE-OP DIAGNOSIS: Positive fecal immunohistochemical test PROCEDURE: EGD and colonoscopy and polypectomy SURGEON: Sony Gibbs ANESTHESIA TYPE: General:No Airway ESTIMATED BLOOD LOSS: 10 PATHOLOGY: other (Polyps x2 at the rectosigmoid junction) COMPLICATIONS: None DISPOSITION: same day INDICATIONS: Zachariah is a 72-year-old male who underwent a fecal immunohistochemical test, which was positive. He also has longstanding gastroesophageal reflux disease. He is here for screening endoscopy and colonoscopy PREP: Miralax/Dulcolax PROCEDURE START TIME: 09:08 PROCEDURE END TIME: 09:33 COLONOSCOPY RETRACTION TIME: 12 FINDINGS: GE junction and Z-line at 40 cm; rectosigmoid colon polyps x2, diverticulosis PROCEDURE DESCRIPTION: After the initiation of monitored anesthetic care, and with the assistance of a bite block, I advanced a standard gastroscope through the mouth past the hypopharynx and into the esophagus.? Under the direct vision of the scope, I adv anced down the esophagus into the stomach.? Once I entered the stomach, I performed a brief inspection, followed by retroflexion towards the gastric cardia.? This appeared normal.? After that, I gently advanced the scope around the incisura angularis and examined the pylorus.? This also appeared normal.? Next, I advanced the scope through the pylorus into the duodenum.? The mucosa was pink and healthy appearing.? There were no abnormalities.? I was able to visualize bile draining into the duodenum through the ampulla Vater. ?Next, I began retracting the endoscope.? The stomach was normal. I then gently desufflated some of the stomach, and withdrew the endoscope into the distal esophagus. The GE junction and Z-line measured at 40 cm. There was very mild irregularity of the Z-line that did not appear consistent with Thayer's esophagus. ?Finally, I withdrew the scope along the length of the esophagus taking great care to examine the entirety of the mucosa.? I did not appreciate any abnormalities. Next, we moved Zachariah into the left lateral decubitus position, I began by performing an external anorectal exam.? Perineum and skin were normal, as was the anal verge.? There was mild evidence of external hemorrhoids.? Next, I performed a digital rectal exam.? I did not appreciate any abnormal findings.? Next, I advanced a colonoscope into the rectal vault.? I performed retroflexion. ? This appeared normal.? Using insufflation, I then advanced the colonoscope beyond the rectal folds and into the sigmoid colon before advancing towards the cecum.? There was extensive sigmoid diverticulosis. The quality of the prep was adequate with extensive irrigation.? The scope was noted to be in the cecum by identification of the ileocecal valve and appendiceal orifice.? I then began withdrawing the colonoscope using repeated irrigation as necessary for full evaluation of the colonic mucosa. ?Once the scope was withdrawn to the level of the rectum, great care was taken to examine portions of the rectal folds.? There were 2 polyps at the rectosigmoid junction adjacent to diverticula. There were each less than 0.5 cm. Both were removed with cold forcep polypectomy. There was minimal bleeding at the sites. Both of these polyps appeared sessile. Finally, the scope was withdrawn and the patient was brought to the same-day surgery recovery unit as the anesthetic wore off. ?The findings and instructions were shared with the patient prior to discharge.
[2022-11-08 08:04] VITALS: BP 153/78; PULSE 67; RESP 16; TEMP 36.6; O2SAT 100
[2022-11-08] MEDS: Lactated Ringers 1,000 ML 80 ML IV (08:23)
[2022-11-08 08:55] VITALS: BMI 24.7
--- NOTE | 2022-11-08 08:55 | W.ANESPRE ---
General Info Date of Service Date Performed: 11/08/22 Height: 5 ft 9 in Weight: 76.1 kg Body Mass Index (BMI): 24.7 Surgical Procedure: Operation Date: 11/08/22 09:05 Proposed Procedure Side Surgeon p Colonoscopy/Gastroscopy Sony Gibbs MD Actual Procedure Side Surgeon p Colonoscopy/Gastroscopy Sony Gibbs MD Meds Allergies and Home Medications Allergies Allergy/AdvReac Type Severity Reaction Status Date / Time bee venom protein (honey bee) Allergy Severe Anaphylaxis Verified 11/08/22 07:58 ketoconazole Allergy Unknown Verified 11/08/22 07:58 lisinopril Allergy Unknown Other (See Uncoded 11/08/22 07:58 Comment) Home Medication Medication Instructions Recorded omeprazole 20 mg capsule,delayed 20 mg PO DAILY 08/27/21 release trazodone 100 mg tablet 100 mg PO DAILY 08/27/21 simvastatin 20 mg tablet 20 mg PO DAILY 11/20/21 amlodipine 10 mg tablet 10 mg PO HS 02/01/22 epinephrine 0.3 mg/0.3 mL 0.3 mg IM DIRECTED 02/08/22 injection, auto-injector (EpiPen) chlorthalidone 25 mg tablet 25 mg PO DAILY 02/12/22 tamsulosin 0.4 mg capsule 0.4 mg PO QHS 10/24/22 ibuprofen 200 mg tablet (Advil) 800 mg PO Q6H PRN 10/31/22 primidone 50 mg tablet 25 mg PO HS 11/07/22 Current Visit Medications: Current Medications Generic Name Dose Route Start Last Admin Trade Name Freq PRN Reason Stop Dose Admin Hyoscyamine Sulfate 0.125 mg 11/07/22 19:27 Hyoscyamine 0.125 Mg Sl/Oral/Chew SL 12/07/22 19:26 DIRECTED PRN Ringer's Solution 1,000 mls @ 80 mls/hr 11/08/22 06:00 11/08/22 08:23 IV 12/07/22 23:59 80 mls/hr INFUSION MARY Administration IV Miscellaneous Supplies 1 each 11/08/22 06:00 Iv Access IV 12/07/22 23:59 DIRECTED MARY Ondansetron HCl 4 mg 11/07/22 19:27 Ondansetron 4 Mg/2 Ml Vial IVP 12/07/22 19:26 Q4H PRN PRN Nausea / Vomiting Sodium Chloride 0 ml 11/08/22 06:00 Normal Saline Flush 10 Ml Syr IV 12/07/22 23:59 PRN PRN Sodium Chloride 0 ml 11/08/22 06:00 Normal Saline 10 Ml Vial IJ 12/07/22 23:59 DIRECTED PRN Sterile Water 0 ml 11/08/22 06:00 Water,Injection,Sterile 10 Ml Vial IJ 12/07/22 23:59 DIRECTED PRN PFSH Active Problems Active Problems: Problem Status Onset Code Sternal fracture S22.20XA GERD (gastroesophageal reflux disease) K21.9 Positive FIT (fecal immunochemical test) R19.5 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 reports for hand surgery he had ether and was really sick, pt. reports he was 14 Surgical History Surgical History H/O retained foreign body fully removed Right palm History of carpal tunnel surgery of left wrist History of carpal tunnel surgery of right wrist History of hammertoe correction (~2021) History of hemorrhoidectomy History of knee surgery arthroscopy - right History of total knee replacement (TKR) (~2021) left and Right knee 2021 per referral Status post hammertoe correction Tobacco Smoking/Tobacco Use Status: Former Tobacco Use Alcohol Alcohol Intake: current Alcohol intake frequency: 0-2 drinks per day Alcohol type: beer Substance Use Substance use: Never Substance use type: does not use Vital Signs and Lab Results Vital Signs Most Recent Vital Signs in EMR: Most Recent Vital Signs Temp Pulse Resp BP Pulse Ox 36.6 C 67 16 153/78 H 100 11/08/22 08:04 11/08/22 08:04 11/08/22 08:04 11/08/22 08:04 11/08/22 08:04 Lab Results Blood Type / Crossmatch: No Data to Display Complete Blood Count: No Data to Display Complete Metabolic Panel: No Data to Display Liver Function Panel: No Data to Display Coagulation Panel: No Data to Display Cardiac Panel: No Data to Display Arterial Blood Gas: No Data to Display Venous Blood Gas: No Data to Display Pancreas Panel: No Data to Display Thyroid Panel: No Data to Display Infectious Disease: No Data to Display Blood Cultures: No Data to Display Toxicology Panel: No Data to Display Imaging and Studies Imaging and Studies Study information below may be from another EMR and interpreted by another provider. Please see original notes in EMR for more complete details. EKG Summary: 12/18/20: Conclusion Sinus tachycardia...rate> 99 Right bundle branch block...QRSd>120, terminal axis(90,270) Inferior infarct, old...Q >35mS, II III aVF. Stress Test Summary: 03/26/2021: Outpatient, [place], [facility] records EF 31%, diffuse hypokinesis No perfusion defects noted. Anesthesia Assessment and Plan Anesthesia History Personal History: No History of Anesthesia Complications Family History: No Family History of Anesthesia Complications Exercise Tolerance Exercise Tolerance: Metabolic Equivalents>4 Pertinent Negatives Pertinent Negatives: No Symptoms of GERD Cardiac & Pulmonary Exam Cardiac Exam: Normal S1/S2 Heart Sounds Pulmonary Exam: Clear Bilateral Breath Sounds Implantable Cardiac Device Does patient have a Pacemaker or an ICD?: No Airway Exam Known Difficult Airway: No Mallampati Class: 2 Mouth Opening: Normal (> 3cm) Thyromental Distance: Greater than 3 cm Neck Range of Motion: Full ROM Neck Circumference: Normal Teeth Condition: Normal Dentition Airway Comments: Reports no history of KIM, significant snoring/nightly per spouse ASA Classification ASA Score: ASA 2 Emergency Case?: No NPO Status NPO Status: NPO Clears >2 hours, Solids >8 hours Anesthesia Plan Resuscitation Status: Full Code Anesthesia Technique: General Anesthesia Airway Planned: Natural Airway Monitors Used: Standard Monitors
--- NOTE | 2022-11-08 09:15 | BOWEL_PTH ---
PATIENT: Zachariah Marcial LOC: [facility] U#:[id number] AGE/SX: 72/M ROOM: RE11/08/[address]: Sony Gibbs MD : 1950 BED: DIS: 11/08/2022 SPEC #: [id number] RECD: 11/08/22 11:20 STATUS: ARLEEN RE #: [id number] GRISELDA: 11/08/22 09:[address]: Sony Gibbs DEPT: Surgical Specimen RECD BY: Lizz Ramirez ENTERED: 11/08/22 11:20 SP TYPE: Bowel OTHR DR: Lulu Tello Tissues: 1 - BIOPSY BOWEL Procedures: GROSS AND MICRO LEVEL 4 Comments: [id number]
[2022-11-08 09:38] VITALS: BP 112/70; PULSE 59; RESP 18; TEMP 36; O2SAT 94
--- NOTE | 2022-11-08 09:46 | W.ANESPOSTOP ---
Postoperative Evaluation Date, Time and Location Date Performed: 11/08/22 Time Performed: 09:46 Patient Location: Day Surgery Unit Vital Signs Most Recent Imported Vital Signs: Most Recent Vital Signs Temp Pulse Resp BP Pulse Ox 36 C L 59 L 18 112/70 94 11/08/22 09:38 11/08/22 09:38 11/08/22 09:38 11/08/22 09:38 11/08/22 09:38 Pain Score Most Recent Pain Score: Most Recent Pain Score Pain Level 4 11/08/22 08:04 Assessment Mental Status: Arousable with meaningful communication Airway and Respiratory Function: Patent airway with normal (patient baseline) respiratory exam Cardiovascular Function: Hemodynamically Stable Hydration Status: Adequately Hydrated Nausea & Vomiting: No Nausea or Vomiting Pain: Pt. Denies Any Pain Peripheral Nerve Block: Patient did not receive a nerve block
--- NOTE | 2022-11-08 09:50 | DSE_ITS ---
Date of service: 11/08/22 Time of Service: 09:50 DS: Diagnosis Discharge Diagnosis (1) Positive FIT (fecal immunochemical test): Status: Acute Asessment and Plan: I will follow-up on the polypectomy results Discharge Plan Disposition Patient Disposition: Home Condition: Good Discharge Details Reason For Visit: EGD and colonoscopy Attending Provider: Sony Gibbs Primary Care Provider: Lulu Tello Home Meds and New Rx's Prescriptions: Continued simvastatin 20 mg tablet 20 mg PO DAILY omeprazole 20 mg capsule,delayed release(DR/EC) 20 mg PO DAILY trazodone 100 mg tablet 100 mg PO DAILY amlodipine 10 mg tablet 10 mg PO HS ibuprofen [Advil] 200 mg tablet 800 mg PO Q6H PRN tamsulosin 0.4 mg capsule 0.4 mg PO QHS primidone 50 mg Tablet 25 mg PO HS epinephrine [EpiPen] 0.3 mg/0.3 mL Auto-Injector 0.3 mg IM DIRECTED chlorthalidone 25 mg Tablet 25 mg PO DAILY Discontinued polyethylene glycol 3350 17 gram/dose powder 238 g PO ONCE Qty: 238 0RF Rx Instructions: take per colonoscopy instructions bisacodyl [Dulcolax (bisacodyl)] 5 mg tablet,delayed release (DR/EC) 5 mg PO ONCE Qty: 4 0RF Rx Instructions: take per colonoscopy instructions Discharge Instructions Instructions: Diverticulitis (GEN), Diverticulosis (GEN), Colorectal Polyps (GEN), Diverticulosis Diet (GEN) Additional Instructions: Zachariah, we were able to complete your upper endoscopy, as well as your colonoscopy today without much difficulty. Your upper endoscopy was very reassuring. You h ave some very mild irregularity of the Z-line, which is the area where your esophagus connects to your stomach. This does not appear consistent with Thayer's esophagus. I do recommend that you continue using omeprazole. If you find that your symptoms of heartburn increase over the years, or are poorly controlled with your omeprazole, then I suggest a repeat upper endoscopy in 3 to 5 years. If your symptoms are well controlled, I do not think you need any more testing. Your colonoscopy showed 2 polyps in the area where your colon connects to your rectum. I removed both of these completely, and I will be in touch when I have the results of the polypectomy reports. You also have extensive diverticulosis of the large intestine. We have attached some information here regarding general management of diverticular disease. 1. If tolerated, consume a soft, low fiber diet for 1-2 days. 2. Do not drive, drink alcohol, operate machinery, make critical decisions, or do activities that require coordination or balance for 24 hours. 3. Because air was put into your colon during the procedure, expelling air from your rectum (passing gas or farting) is normal. 4. You may not have a bowel movement for 1-3 days because of the colonoscopy prep. This is normal. 5. You may experience a sore throat for 24 to 48 hours. You may use throat lozenges or gargle with warm salt water to relieve the discomfort. 6. Because air was put into your stomach during the procedure, you may experience some belching. 7. Go directly to the emergency room if you notice any of the following: Develop chills (warm to touch), or if you have a thermometer and your temperature is above 101 Difficulty breathing or difficultly swallowing Persistent vomiting Severe abdominal pain, other than gas cramps Severe chest pain Black, tarry stools Any bleeding ? exceeding one tablespoon 8. Call your physician if the site where your intravenous was started becomes red, swollen, painful, and warm to touch. 9. Your physician has reviewed your pre-procedure medications. Please continue to take those medications as previously ordered. You will be given specific information/education regarding any changes to your medications before leaving. Activity:: Activity as Tolerated Diet:: As Tolerated Discharge Orders Discharge Orders: Discharge Order (Routine); Ordered 11/07/22 Ordered By: Sony Gibbs DS: Summary Time Spent with Patient providing and/or coordinating discharge services: Less than 30 minutes Status at Discharge Functional status at discharge: independent ambulation Overall status at discharge: patient is back to baseline Mental Status: mental status grossly normal Speech and Movement: speech and movement normal Mood: congruent mood Affect: normal affect Exam Psych Mental Status: mental status grossly normal Speech and Movement: speech and movement normal Mood: congruent mood Affect: normal affect DS: Data Vitals/I&O Vitals and I&O: Vital Signs Temperature 96.8 F L 11/08/22 09:38 Pulse 59 L 11/08/22 09:38 Pulse Rhythm Regular 11/08/22 08:04 Respiratory Rate 18 11/08/22 09:38 Respiratory Depth Normal 11/08/22 08:04 Blood Pressure 112/70 11/08/22 09:38 Pulse Oximetry 94 11/08/22 09:38 Oxygen Delivery Method Room Air 11/08/22 09:38 Oxygen Flow Rate 0 11/08/22 08:04 Pain Level 4 11/08/22 08:04 Intake & Output 11/07/22 11/07/22 11/08/22 11:59 23:59 11:59 Intake Total 300 / 300 Balance 300 / 300 Weight 175 lb 167 lb 12.348 oz Intake: IV 300 / 300 PFSH All Active Problems Sternal fracture (Acute) 11/27 secondary to Fx from CPR. Still has chronic pain in the area. 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) 40 mg Depo-Medrol injection: 09/02/2022 Left hand paresthesia (Acute) History of total left knee replacement (Acute 04/16/22) History of total right knee replacement (Acute 02/12/22) Bee sting-induced anaphylaxis (Acute) Cardiopulmonary arrest (Acute) Hammertoe of second toe of right foot (Acute) Medical History Anaphylaxis Bees Cardiac arrest x2 anaphylaxis 12/18/20 COPD (chronic obstructive pulmonary disease) Elevated ferritin Elevated platelet count HTN (hypertension) Hyperlipidemia Tremor Surgical History H/O retained foreign body fully removed Right palm History of carpal tunnel surgery of left wrist History of carpal tunnel surgery of right wrist History of hammertoe correction (~2021) History of hemorrhoidectomy History of knee surgery arthroscopy - right History of total knee replacement (TKR) (~2021) left and Right knee 2021 per referral Status post hammertoe correction Social History Smoking/Tobacco Use Status: Former Tobacco Use Quit Date: 06/09/01 Smoking risk assessment performed?: Yes Alcohol Intake: current Alcohol Intake frequency: 0-2 drinks per day Alcohol type: beer Drug use: Never Substance use type: does not use Current gender identity: male Do you feel safe at home: Yes Do you feel safe in your relationship?: Yes Time Spent with Patient Time Spent with Patient: <45 minutes Time was spent: preparing to see the patient(eg.review tests) and counseling the patient
[2022-11-08 10:02] VITALS: BP 127/71; PULSE 65; RESP 18; TEMP 35.9; O2SAT 96
== END 2022-11-08 10:05 | disposition home or self-care (01) ==
PROVIDERS: PCP Physician Assistant; Visit Provider Surgery
PROC: (CPT 45380; principal; 2022-11-08 09:00)
DX: R19.5 Other fecal abnormalities (principal); K21.9 Gastro-esophageal reflux disease without esophagitis; K57.30 Diverticulosis of large intestine without perforation or abscess without bleeding; K62.1 Rectal polyp; K63.5 Polyp of colon; K64.4 Residual hemorrhoidal skin tags
CPT/HCPCS: 45380; 43235; 88305

== ENCOUNTER → 2022-11-20 08:51 | Outpatient (BNVA) | payer MEDICARE, SELFPAY | PROVIDERS: PCP Physician Assistant; Referring Provider Physician Assistant; Visit Provider Surgery | DX: Z48.815 Encounter for surgical aftercare following surgery on the digestive system (principal) | CPT/HCPCS: 99213 ==

== ENCOUNTER 2023-03-27 10:07 | Outpatient (CLI) | payer MEDICARE, SELFPAY ==
--- NOTE | 2023-03-27 09:53 | DI.RAD_ITS ---
Exam(s) XR KNEE RT 2V AP,LAT EXAM: XR KNEE RT 2V AP,LAT CLINICAL HISTORY: ANNUAL F/U R TKA. TECHNIQUE: 2D digital imaging was performed. Two images were obtained. AP and lateral views were ob tained. COMPARISON: CR XR STANDING ALIGNMENT from 04/29/2022 CR XR KNEES MERCHANT ONLY from 05/30/2022 FINDINGS: BONES: There are stable post operative changes a right total knee replacement present. No fracture o r dislocation. There is an enthesophyte at the superior patella. JOINTS: The orthopedic hardware is in good position. No evidence of hardware loosening. SOFT TISSUE: Atherosclerosis is present. IMPRESSION: Stable postoperative changes. DATA REPOSITORY: RADIATION DOSE DELIVERED:
--- NOTE | 2023-03-27 09:54 | DI.RAD_ITS ---
Exam(s) XR KNEE LT 2V AP,LAT EXAM: XR KNEE LT 2V AP,LAT CLINICAL HISTORY: annual f/u L TKA. TECHNIQUE: 2D digital imaging was performed. Two images were obtained. AP and lateral views were ob tained. COMPARISON: CR XR KNEE LT 3V AP,LAT,KIERRA from 11/20/2021 CR XR KNEE LT 1V from 04/29/2022 CR XR STANDING ALIGNMENT from 04/29/2022 CR XR KNEES MERCHANT ONLY from 05/30/2022 FINDINGS: BONES: There are stable post operative changes of a left total knee replacement present. No fracture or dislocation. JOINTS: The orthopedic hardware is in good position. No evidence of hardware loosening. SOFT TISSUE: Atherosclerosis is present. IMPRESSION: Stable postoperative changes. DATA REPOSITORY: RADIATION DOSE DELIVERED:
== END 2023-03-27 10:08 | disposition home or self-care (01) ==
LOC: DIORS 10:07
PROVIDERS: PCP Physician Assistant; Referring Provider Physician Assistant; Visit Provider Student in an Organized Health Care Education/Training Program
DX: Z47.1 Aftercare following joint replacement surgery; Z96.651 Presence of right artificial knee joint; Z96.652 Presence of left artificial knee joint
CPT/HCPCS: 99213; 73560

== ENCOUNTER → 2024-01-22 14:52 | Outpatient (BNVA) | payer MEDICARE, SELFPAY | PROVIDERS: PCP Physician Assistant; Referring Provider Physician Assistant; Visit Provider Surgery ==

== ENCOUNTER 2024-05-04 14:25 | Emergency (ER) | payer OTHER, SELFPAY ==
[2024-05-04 14:28] VITALS: BP 140/76; PULSE 76; RESP 15; TEMP 36.4; O2SAT 97
--- NOTE | 2024-05-04 14:45 | DI.RAD_ITS ---
Exam(s) XR HAND RT COMPLETE EXAM: XR HAND RT COMPLETE CLINICAL HISTORY: Pain at base of thumb and index finger. TECHNIQUE: 2D digital imaging was performed. COMPARISON: CR LEFT INDEX FINGER from 03/29/2009 CR XR HAND LT COMPLETE from 09/02/2022 FINDINGS: 3 views There is degenerative narrowing of the metacarpophalangeal joint of the 3rd-middle finger. On the PA view there is cortical irregularity on the medial aspect of the head of the 3rd metacarpal. This ma y represent a subtle fracture site versus is degenerative osteophyte. There is also some degenerativ e change at the metacarpophalangeal joint of the 2nd-index finger. Also with osteophyte but no fract ure. The other metacarpophalangeal joints appear unremarkable. Some degenerative changes noted in t he interphalangeal joint of the thumb. Other interphalangeal joints appear unremarkable. There are 3 similar-appearing soft tissue foreign bodies on the palm are aspect of the 3rd-middle finger at the level of the middle and distal phalanges. Soft tissues at this level volar to the proximal phalanx are difficult to assess for foreign bodies as there is overlapping bone structures at this level. 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 On the medial aspect of the head of the 3rd-middle finger metacarpal there is an osteophytic density which is either an osteophyte or avulsion fracture, difficult to differentiate on these images. Mahin elation with site of tenderness is recommended. Three small nonmetallic foreign bodies noted in the volar soft tissues of the 3rd-middle finger. DATA REPOSITORY: RADIATION DOSE DELIVERED:
--- NOTE | 2024-05-04 14:50 | ED.GENADUL_ITS ---
Discharge Plan Disposition Patient Disposition: Home Condition: Good Discharge Details Clinical Impression: De Quervain's tenosynovitis, right Primary Care Provider: Lulu Tello ED Provider: Ashleigh Diaz Home Meds and New Rx's Prescriptions: Continued omeprazole 20 mg capsule,delayed release(DR/EC) 20 mg PO BID trazodone 100 mg tablet 200 mg PO QHS amlodipine 10 mg tablet 10 mg PO HS carboxymethylcellulose sodium 0.5 % dropperette 1 drp ophthalmic (eye) QID PRN ibuprofen 800 mg tablet 800 mg PO TID olodaterol 2.5 mcg/actuation mist 2 inh inhalation DAILY epinephrine [EpiPen] 0.3 mg/0.3 mL Auto-Injector 0.3 mg IM DIRECTED Discharge Instructions Instructions: de Quervain tendinopathy Additional Instructions: Please call [facility] first thing in the morning to schedule follow-up appointment in the next 2 to 3 weeks. Your x-ray was negative, no sign of fracture. There are signs of osteoarthritis. I recommend that you use the Velcro thumb spica brace to help your tendons rest. Apply ice for 15 to 20 minutes at a time every hour or so. Elevate above heart level to help with swelling. Please do not take more than 800 mg ibuprofen every 8 hours as needed; this may be used around the clock for pain control. You may also add Tylenol 650 mg every 8 hours; combined these 2 can be very effective. Return to emergency care if develop new redness, swelling, fevers associated with pain,inability to move your thumb or fingers, or if you are very worried and need to be rechecked again immediately. Referrals: [facility] [Provider Group] Discharge Data Discharge Date/Time-TO BE ENTERED AT DEPARTURE: 05/04/24 15:30 HPI General Date/Time Provider Initiated Documentation: 05/04/24 14:33 . HPI Narrative: Zachariah is a 74year old male who presents to the emergency department today for evaluation of right hand pain. He reports this has been ongoing for 3 to 4 weeks, is slightly alleviated by taking 1600 mg of ibuprofen at a time, but otherwise is uncomfortable with palpation and movement. He denies associated fever/chills, general malaise, numbness/tingling, difficulty in extending or flexing fingers, wrist pain, elbow pain, recent trauma. He does admit to being very active, says that he was doing a lot of woodworking hammering this summer, but stopped around March. He is right-handed. No known history of rheumatoid arthritis or other inflammatory arthritis syndromes. No previous injury to this hand. He has had bilateral carpal tunnel release surgeries. Physical exam remarkable for tenderness with palpation of the first and second metacarpals. No overlying ecchymosis/crepitus/abrasion/lacerations. Full flexion-extension of fingers. Sensation fully intact. Positive Kaela test. History and presentation consistent with de Quervain's tenosynovitis, though stress fracture is also possible based on patient's history. No red flags concerning for inflammatory arthritis, septic joint, or other serious etiology requiring labs or further procedures at this time. I independently interpreted the following tests: Right hand x-ray reassuring, no sign of fracture. Radiologist did note osteophytic density at the third middle finger metacarpal, this is not correlated with site of tenderness. While in the emergency department, Zachariah received a thumb spica Velcro brace and ice for discomfort. I did discuss with him the importance of avoiding overdosing on ibuprofen due to risk of GI bleed. Reviewed discharge instructions with patient, including symptomatic management and red flags indicating need for return to emergency care. Recommend follow-up with orthopedics. Related Data Home Medications ?Medication ?Instructions ?Recorded ?Confirmed amlodipine 10 mg tablet 10 mg PO HS 02/01/22 05/04/24 epinephrine 0.3 mg/0.3 mL 0.3 mg IM DIRECTED 02/08/22 05/04/24 injection, auto-injector (EpiPen) carboxymethylcellulose sodium 0.5 1 drp ophthalmic (eye) QID PRN 01/12/24 05/04/24 % eye drops in a dropperette ibuprofen 800 mg tablet 800 mg PO TID 01/12/24 05/04/24 olodaterol 2.5 mcg/actuation mist 2 inh inhalation DAILY 01/12/24 05/04/24 for inhalation omeprazole 20 mg capsule,delayed 20 mg PO BID 01/22/24 05/04/24 release trazodone 100 mg tablet 200 mg PO QHS 01/22/24 05/04/24 Allergies Allergy/AdvReac Type Severity Reaction Status Date / Time bee venom protein (honey bee) Allergy Severe Anaphylaxis Verified 05/04/24 14:34 ketoconazole Allergy Unknown Itching Verified 05/04/24 14:34 lisinopril Allergy Unknown Other (See Uncoded 05/04/24 14:34 Comment) General Stated Complaint: Orthopedic TORIN: 4 Review of Systems Narrative: see HPI Exam Const General: cooperative, healthy appearing, comfortable, no acute distress and well developed Nutritional Appearance: average body habitus Orientation: alert and oriented x3 Resp Effort & Inspection: normal respiratory effort and able to speak in complete sentences Extrem Right upper extremity: hand (Kaela test positive, elicits pain) Details: normal capillary refill, neuromotor exam normal, neurosensory exam normal, tenderness (Along first and second metacarpals) and normal ROM of fingers; no unusual warmth, no swelling, no lacerations, no ecchymosis and no crepitus Course Vital Signs Vital signs: Vital Signs Temperature 36.4 C L 05/04/24 14:28 Pulse 76 05/04/24 14:28 Respiratory Rate 15 05/04/24 14:28 Blood Pressure 140/76 05/04/24 14:28 Pulse Oximetry 97 05/04/24 14:28 Temperature 36.4 C L 05/04/24 14:28 Pulse 76 05/04/24 14:28 Respiratory Rate 15 05/04/24 14:28 Respiratory Effort Normal 05/04/24 14:32 Blood Pressure 140/76 05/04/24 14:28 Blood Pressure Position Sitting 05/04/24 14:28 Pulse Oximetry 97 05/04/24 14:28 Oxygen Delivery Method Room Air 05/04/24 14:28 Oxygen Flow Rate 0 05/04/24 14:28 Medical Decision Making Quality:SDOH Health Related Social Needs: No Data to Display PFSH All Active Problems (Updated 05/04/24 @ 15:30 by Ashleigh Mao) De Quervain's tenosynovitis, right (Acute) Abnormal sense of taste (Acute) Unexplained weight loss (Acute) Sternal fracture (Acute) 11/27 secondary to Fx from CPR. Still has chronic pain in the area. 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) 40 mg Depo-Medrol injection: 09/02/2022 Left hand paresthesia (Acute) Bee sting-induced anaphylaxis (Acute) Cardiopulmonary arrest (Acute) Hammertoe of second toe of right foot (Acute) Medical History (Updated 05/04/24 @ 15:30 by Ashleigh Mao) Colon polyp, hyperplastic (~11/2022) Tremor COPD (chronic obstructive pulmonary disease) Hyperlipidemia Elevated ferritin Elevated platelet count Cardiac arrest x2 anaphylaxis 12/18/20 HTN (hypertension) Anaphylaxis Bees Surgical History (Updated 03/27/23 @ 10:01 by JUANY García) 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) History of total right knee replacement (02/12/22) History of esophagogastroduodenoscopy (EGD) (~11/2022) History of colonoscopy (~11/2022) History of hammertoe correction (~2021) H/O retained foreign body fully removed Right palm History of hemorrhoidectomy History of carpal tunnel surgery of left wrist History of carpal tunnel surgery of right wrist Status post hammertoe correction History of knee surgery arthroscopy - right Social History Smoking/Tobacco Use Status: Former Tobacco Use Quit Date: 06/09/01 Smoking risk assessment performed?: Yes Alcohol Intake: current Alcohol Intake frequency: 0-2 drinks per day Alcohol type: beer Drug use: Never Substance use type: does not use Current gender identity: male Do you feel safe at home: Yes Do you feel safe in your relationship?: Yes PAWSS Have you Been Recently Intoxicated or Drunk Within the Last 30 days?: No Have you Ever Experienced Previous Episodes of Alcohol Withdrawal?: No Have you ever Experienced Withdrawal Seizures?: No Have you ever Experienced Delirium Tremens(DT)s?: No Have you ever undergone Alcohol Rehabilitation Treatment (i.e, inpt ot outpatient treatment programs)?: No Have you ever Experienced Blackouts?: No Have you ever Combined Alcohol with other Downers within the last 90 days?: No Have you ever Combined Alcohol with any other Substance of Abuse during the last 90 days?: No Positive Blood Alcohol level on Presentation? [PCS.BAL]: No Evidence of Increased Autonomic Activity (i.e. HR>120, tremor, sweating, agitation, nausea)?: No Result: 0
[2024-05-04] MEDS: Acetaminophen 325 MG TAB 650 MG PO (14:53)
== END 2024-05-04 15:47 | disposition home or self-care (01) ==
PROVIDERS: Emergency Provider Nurse Practitioner Family; PCP Physician Assistant
DX: M65.4 Radial styloid tenosynovitis [de Quervain] (principal)
CPT/HCPCS: 29130; 99283; 73130

== ENCOUNTER 2024-08-12 01:53 | Outpatient (CLI) | payer OTHER, SELFPAY ==
--- NOTE | 2024-08-12 07:45 | DI.MRI_ITS ---
Exam(s) MR UPPER EXTREMITY RT WO EXAM: MR UPPER EXTREMITY RT WO CLINICAL HISTORY: pain fingers,oa rt hand,m79.646,m19.041,[id number] TECHNIQUE: Multiplanar multisequence MRI was performed. COMPARISON: No exams were available for comparison FINDINGS: MARROW/ARTICULATIONS:There are no fractures. No ominous osseous lesions. There are degenerative osteoarthritic changes throughout the hand and wrist involving radiocarpal petra nt and other carpal row bones and 1st carpometacarpal joint. Probable prior fracture of the ulnar sty loid. There is a small joint effusion within the distal radioulnar joint. There are asymmetric degene rative osteoarthritic changes within the metacarpophalangeal joints of the 2nd, 3rd, and 5th MCP join ts. There also mild osteoarthritic degenerative changes in all the proximal and distal interphalangea l joints. Also mild degenerative changes within the thumb at the level the metacarpophalangeal joint and interphalangeal joint. TRIANGULAR FIBROCARTILAGE COMPLEX: There is full-thickness tearing evident TENDONS: No tendon tears nor tenosynovitis evident in the flexor and extensor compartments. COLLATERAL LIGAMENTS: No evidence of tear of the ulnar collateral ligament of the thumb nor other fin cyndi collateral ligaments MUSCLES: There is no evidence of abnormal signal nor mass in the visualized muscles. EXTRAMUSCULAR SOFT TISSUES: No abnormal signal, mass, or fluid collection. OTHER: Multifocal susceptibility artifacts are seen within or overlying the soft tissues along the pa lmar and dorsal surfaces of the 3rd, 4th, and 5th fingers IMPRESSION: 1. There are diffuse arthritic changes in the hand and wrist, most probably related to osteoarthritis although crystalline or inflammatory arthropathy cannot be completely excluded, but less likely. 2. There are multifocal foci of susceptibility artifact over the dorsal and palm are aspects of the 3 rd, 4th, and 5th fingers.. There is no radiopaque foreign body evident on prior radiographic images o f May 04, 2024. Recommend repeat hand radiographs at this time to determine if there are radiopa que foreign bodies. DATA REPOSITORY:
--- NOTE | 2024-08-12 17:35 | DI.VRAD_ITS ---
PROCEDURE INFORMATION: Exam: MR Right Upper Extremity Other Than Joint Without Contrast; Hand Exam date and time: 08/12/2024 7:02 AM Age: 74 years old Clinical indication: Pain in fingers and hand TECHNIQUE: Imaging protocol: MR of the right upper extremity without contrast. Exam focused on the hand. COMPARISON: CR XR HAND RT COMPLETE 05/04/2024 3:15 PM FINDINGS: Bones/joints: Varying degrees of mild to moderate osteoarthritic changes are seen throughout the radiocarpal joint, throughout the carpal bones and thumb CMC joint. Irregularity is seen within the ulnar styloid which could represent sequela of a prior fracture. Small joint effusion within the distal radial ulnar joint. Asymmetrical arthritic changes are seen within the 2nd/index, 3rd/middle, and 5th/small MCP joints. Scattered mild osteoarthritic changes are seen diffusely throughout the PIP and DIP joints of the fingers. Mild osteoarthritic change within the thumb MCP and IP joint. Collateral ligaments of digits: No acute sprain or tear. Triangular fibrocartilage complex: Full-thickness tear within the triangular fibrocartilage. Flexor compartment tendons: No acute tear or rupture. Extensor compartment tendons: No acute tear or rupture. Soft tissues: Multifocal areas of susceptibility artifact are seen within or overlying the soft tissues along the palmar and dorsal aspect of the 3rd/middle, 4th/ring, and 5th/small fingers. The muscles are in appearance without myositis or muscular tearing. IMPRESSION: 1. Arthritic changes throughout the wrist and fingers, favored represent sequela of osteoarthritis, possibly secondary to prior injury. A superimposed component of crystalline or inflammatory arthropathy can not be entirely excluded however is less favored. 2. Multifocal areas of susceptibility artifact are seen within or overlying the soft tissues of the 3rd/middle, 4th/ring, and 5th/small fingers without corresponding radiographic abnormality seen on May 04, 2024. This may be external to the patient. Tiny foci of retained foreign bodies could also give this appearance in the correct clinical context. Repeat radiographs can be considered. Dictated and Authenticated by: Joselin Esposito MD. Orderin Brynn Drew MD
== END 2024-08-12 02:13 ==
LOC: DI 01:53
PROVIDERS: PCP Physician Assistant; Visit Provider Student in an Organized Health Care Education/Training Program
DX: M19.041 Primary osteoarthritis, right hand (principal)
CPT/HCPCS: 73218

== ENCOUNTER 2025-03-14 15:21 | Outpatient (CLI) | payer OTHER, SELFPAY ==
--- NOTE | 2025-03-14 15:08 | DI.RAD_ITS ---
Exam(s) XR KNEE LT 3V AP,LAT,KIERRA EXAM: XR KNEE LT 3V AP,LAT,KIERRA h CLINICAL HISTORY: left knee pain. TECHNIQUE: 2D digital imaging was performed. COMPARISON: CR XR KNEE LT 2V AP,LAT from 03/27/2023 CR XR KNEE RT 3V AP,LAT,KIERRA from 03/14/2025 FINDINGS: Two views There is stable position alignment of the components of the left knee prosthesis. No fracture or loosening evident. Again noted is an enthesophyte at the quadriceps insertional aspect on the anterosuperior aspect of the patella, similar to the opposite side. IMPRESSION: Stable satisfactory appearance. DATA REPOSITORY: RADIATION DOSE DELIVERED:
--- NOTE | 2025-03-14 15:08 | DI.RAD_ITS ---
Exam(s) XR KNEE RT 3V AP,LAT,KIERRA EXAM: XR KNEE RT 3V AP,LAT,KIERRA CLINICAL HISTORY: . TECHNIQUE: 2D digital imaging was performed. COMPARISON: CR XR KNEE RT 2V AP,LAT from 03/27/2023 FINDINGS: Two views There is stable position alignment of the components of the right knee prosthesis with no evidence of fracture or loosening. No evidence of osteomyelitis. Prominent enthesophyte again noted at the quadriceps insertion on the anterosuperior patella, unchanged. Vascular calcification in the popliteal artery again noted. IMPRESSION: Stable satisfactory appearance of the right knee prosthesis. DATA REPOSITORY: RADIATION DOSE DELIVERED:
--- NOTE | 2025-03-14 15:35 | DI.RAD_ITS ---
Exam(s) XR KNEES MERCHANT ONLY EXAM: XR KNEES MERCHANT ONLY CLINICAL HISTORY: bilateral knee pain. TECHNIQUE: 2D digital imaging was performed. COMPARISON: CR XR KNEE RT 2V AP,LAT from 03/27/2023 FINDINGS: Single merchant's view of both knees: There are bilateral knee prostheses and there has been bilateral patellar resurfacing. These appear unremarkable and symmetrical. There is also no significant patellar position abnormality. There are enthesophytes on the anterosuperior aspect of both patellae at the insertional aspect of the quadriceps tendons, these findings best seen on the lateral views. IMPRESSION: Unremarkable merchant's view of both knees. DATA REPOSITORY: RADIATION DOSE DELIVERED:
== END 2025-03-14 15:22 | disposition home or self-care (01) ==
PROVIDERS: PCP Physician Assistant; Referring Provider Physician Assistant; Visit Provider Physician Assistant
DX: Z96.652 Presence of left artificial knee joint (principal); Z96.651 Presence of right artificial knee joint
CPT/HCPCS: 73562; 73565